=== PATIENT | male | born 1960 | race Caucasian/White ===

== ENCOUNTER 2016-06-10 14:23 | Inpatient (IN) ==
[2016-06-10] MEDS ORDERED: methylPREDNISolone 125 MG/2 ML VIAL IVP ONE (14:32)
[2016-06-10] MEDS ORDERED: Ipratropium/Albuterol Neb 3 ML IH ONE (14:32)
--- NOTE | 2016-06-10 14:35 | Emergency Department Note ---
Disposition Clinical Impression: Non-STEMI (non-ST elevated myocardial infarction), Renal insufficiency Diabetes Qualifiers: Diabetes mellitus type: type 2 Diabetes mellitus complication status: with hyperglycemia Diabetes mellitus intermediate insulin use: unspecified intermediate insulin use status Qualified Code(s): E11.65 - Type 2 diabetes mellitus with hyperglycemia Disposition: Admitted As Inpatient Condition: Fair Referrals: Otto Banks MD [Primary Care Provider] - Forms: ED Satisfaction Letter Time of Disposition: 15:28 SOB HPI - General Chief Complaint: ED Shortness of Breath/Dyspnea Stated Complaint: HAIDER Time Seen by Provider: 06/10/16 14:32 Source: patient Limitations: no limitations Nursing Notes Reviewed: Yes Vital Signs Reviewed: Yes - History of Present Illness 55-year-old who over the last week has had increasing shortness of breath especially with exertion. The patient denies any respiratory history however he does have a 14-wpri-zzus history of smoking. No Chest pain. Pt Subjective Complaint: shortness of breath Onset (ago): Just DOCUMENTATION NURSE Severity: moderate Worsens with: exertion Known history of: other (Denies history but is a heavy smoker) Associated symptoms: Reports: cough, wheezing. Denies: chest pain, fever Cough Description: Involuntary Cough Frequency: Intermittent - Related Data Previous Rx's Medication Instructions Recorded Cyclobenzaprine [Flexeril] 10 mg PO TID #30 tablet 03/15/16 HYDROcodone/Acet 5/325 mg [[place] 1 tab PO Q6H PRN #10 tab 03/15/16 5-325 mg] Allergies Allergy/AdvReac Type Severity Reaction Status Date / Time lisinopril AdvReac Hypotension Verified 06/10/16 14:28 Constitutional: Denies: fever, chills, weakness, weight change Eyes: Denies: eye pain, eye discharge, vision change ENT ED: Denies: ear pain, throat pain, dental pain, hearing loss, epistaxis, congestion, dysphagia Cardiovascular: Denies: chest pain, palpitations, dyspnea on exertion, edema, syncope Respiratory: Reports: dyspnea, wheezes. Denies: cough, hemoptysis, stridor Gastrointestinal: Denies: abdominal pain, nausea, vomiting, diarrhea, constipation, hematemesis, melena, hematochezia Genitourinary: Denies: urgency, dysuria, frequency, hematuria Musculoskeletal: Denies: back pain, neck pain, arthralgia, myalgia Integumentary: Denies: rash, abrasion, lesions Neurological: Denies: headache, weakness, numbness, paresthesias, confusion, abnormal gait, vertigo Psychiatric: Denies: anxiety, depression, suicidal thoughts, homicidal thoughts , auditory hallucinations, visual hallucinations Endocrine: Denies: fatigue Hematological/Lymphatic: Denies: easy bleeding, easy bruising Allergic/Immunologic: Denies: facial swelling, urticaria Past Medical History - Past Medical History Medical history: Reports: diabetes, hyperlipidemia, hypertension Psychiatric history: Reports: no psych history - Social History Smoking Status: Current every day smoker Alcohol use: Reports: occasionally Drug use: Reports: none Physical Exam - General Limitations: no limitations General appearance: alert, in distress - Head Head exam: atraumatic, normocephalic, normal inspection - Eye Eye exam: Present: normal appearance, PERRL, EOMI - ENT ENT exam: normal exam, normal oropharynx, mucous membranes moist - Neck Neck exam: Present: normal inspection, full ROM, trachea midline - Chest Chest inspection: Present: normal inspection, symmetric chest wall rise - Respiratory Respiratory exam: Present: respiratory distress, wheezes, accessory muscle use - Cardiovascular Cardiovascular exam: Present: regular rate, normal rhythm, normal heart sounds - Abdominal Exam Abdominal exam: Present: soft, Non-Tender. Absent: tenderness, distention, guarding, rebound, rigidity - Extremities Exam Extremities exam: Present: normal inspection, full ROM. Absent: tenderness, pedal edema - Expanded Lower Extremity Exam Neurovascular/Tendon exam: Absent: motor deficit, sensory deficit, tendon deficit Gait: not tested/not observed - Back Exam Back exam: Present: normal inspection, full ROM. Absent: tenderness - Neurological Exam Neurological exam: Present: alert, oriented X3 - Psychiatric Psychiatric exam: Present: normal affect, normal mood - Skin Skin exam: Present: warm, dry, intact, normal color Course - Consultations Consultation #1: EKG faxed to the Network Pricing Consultant. Time: 14:53 Consultation #2: Dr. Son reviewed Time: 15:13 Consultation #3: Discussed with jeyson Rankin. Time: 15:28 Additional Consultation(s): [address] Howe reviewed the EKG. 1551 pm I discussed with Sveta kaiser. His lab results including a lactate of 8.2, elevated glucose at 799, elevated troponin of 0.39. [address] Howe is here and evaluated the patient from a cardiology standpoint. Vital Signs Temperature 98.1 F 06/10/16 14:24 Pulse Rate 113 06/10/16 14:24 Respiratory Rate 24 06/10/16 14:24 Blood Pressure 130/88 06/10/16 14:24 O2 Sat by Pulse Oximetry 88 L 06/10/16 14:24 Temperature 98.1 F 06/10/16 14:24 Pulse Rate 97 06/10/16 16:15 Respiratory Rate 18 06/10/16 16:15 Blood Pressure 148/109 06/10/16 16:15 O2 Sat by Pulse Oximetry 93 L 06/10/16 16:15 Oxygen Delivery Oxygen Delivery Nasal Cannula Shortness of Breath/Dyspnea - Lab Data Lab results reviewed: Yes I reviewed the patient's lab results. Result diagrams: 06/10/16 14:50 06/10/16 14:50 Lab Results 06/10/16 06/10/16 06/10/16 Range/Units 14:50 14:50 14:50 WBC 11.3 H (4.3-11.1) K/mcL RBC 5.13 (4.19-5.50) M/mcL Hgb 16.9 (12.9-16.9) g/dL Hct 47.1 (37.5-50.1) % MCV 91.8 (83.0-100.0) fL MCH 32.9 (28.0-33.3) pg MCHC 35.9 H (31.6-35.5) g/dL RDW 13.0 (11.5-14.5) % Plt Count 215 (140-400) K/mcL MPV 9.3 L (9.4-12.4) fL Immature Gran % 1.0 (0-4) % Seg Neutrophils % 83.2 % Lymphocytes % 6.7 % Monocytes % 8.5 % Eosinophils % 0.2 % Basophils % 0.4 % Neutrophils # 9.4 H (1.6-8.9) K/mcL Lymphocytes # 0.8 (0.6-4.6) K/mcL Monocytes # 1.0 (0.0-1.3) K/mcL Eosinophils # 0.0 (0.0-0.6) K/mcL Basophils # 0.0 (0.0-0.2) K/mcL PT (9.4-12.1) Seconds INR APTT (26.0-36.0) Seconds ABG pH (7.32-7.45) pH Units ABG pCO2 (35-45) mmHg ABG pO2 (85-104) mmHg ABG HCO3 (21-27) mEQ/L ABG Total CO2 (20-26) mEq/L ABG O2 Saturation (95-98) % ABG Base Excess (-2.0 to 3.0) mEq/L Blood Gas Modality Inspired O2 % Sodium 131 L (136-145) mEq/L Potassium 3.9 (3.5-4.5) mEq/L Chloride 94 L (98-109) mEq/L Carbon Dioxide 17 L (19-29) mEq/L BUN 7 L (8-26) mg/dL Creatinine 1.37 H (0.72-1.25) mg/dL Est GFR ( Amer) > 60 (> 60) Est GFR (Non-Af Amer) 54 L (> 60) BUN/Creatinine Ratio 5 L (6-26) Glucose 799 H* (70-99) mg/dL Calculated Osmolality 309 H (280-300) Lactic Acid (0.5-2.2) mmol/L Calcium 9.0 (8.6-10.8) mg/dL Troponin I 0.39 H* (0-0.03) ng/mL B-Natriuretic Peptide (0-100) pg/mL 06/10/16 06/10/16 06/10/16 Range/Units 14:50 14:50 14:50 WBC (4.3-11.1) K/mcL RBC (4.19-5.50) M/mcL Hgb (12.9-16.9) g/dL Hct (37.5-50.1) % MCV (83.0-100.0) fL MCH (28.0-33.3) pg MCHC (31.6-35.5) g/dL RDW (11.5-14.5) % Plt Count (140-400) K/mcL MPV (9.4-12.4) fL Immature Gran % (0-4) % Seg Neutrophils % % Lymphocytes % % Monocytes % % Eosinophils % % Basophils % % Neutrophils # (1.6-8.9) K/mcL Lymphocytes # (0.6-4.6) K/mcL Monocytes # (0.0-1.3) K/mcL Eosinophils # (0.0-0.6) K/mcL Basophils # (0.0-0.2) K/mcL PT 10.9 (9.4-12.1) Seconds INR 1.0 APTT 23.8 L (26.0-36.0) Seconds ABG pH 7.43 (7.32-7.45) pH Units ABG pCO2 21 L (35-45) mmHg ABG pO2 106 H (85-104) mmHg ABG HCO3 13.9 L (21-27) mEQ/L ABG Total CO2 14.5 L (20-26) mEq/L ABG O2 Saturation 98 (95-98) % ABG Base Excess -7.8 L (-2.0 to 3.0) mEq/L Blood Gas Modality [place]ASK Inspired O2 60 % Sodium (136-145) mEq/L Potassium (3.5-4.5) mEq/L Chloride (98-109) mEq/L Carbon Dioxide (19-29) mEq/L BUN (8-26) mg/dL Creatinine (0.72-1.25) mg/dL Est GFR ( Amer) (> 60) Est GFR (Non-Af Amer) (> 60) BUN/Creatinine Ratio (6-26) Glucose (70-99) mg/dL Calculated Osmolality (280-300) Lactic Acid (0.5-2.2) mmol/L Calcium (8.6-10.8) mg/dL Troponin I (0-0.03) ng/mL B-Natriuretic Peptide 382 H (0-100) pg/mL 06/10/16 Range/Units 15:00 WBC (4.3-11.1) K/mcL RBC (4.19-5.50) M/mcL Hgb (12.9-16.9) g/dL Hct (37.5-50.1) % MCV (83.0-100.0) fL MCH (28.0-33.3) pg MCHC (31.6-35.5) g/dL RDW (11.5-14.5) % Plt Count (140-400) K/mcL MPV (9.4-12.4) fL Immature Gran % (0-4) % Seg Neutrophils % % Lymphocytes % % Monocytes % % Eosinophils % % Basophils % % Neutrophils # (1.6-8.9) K/mcL Lymphocytes # (0.6-4.6) K/mcL Monocytes # (0.0-1.3) K/mcL Eosinophils # (0.0-0.6) K/mcL Basophils # (0.0-0.2) K/mcL PT (9.4-12.1) Seconds INR APTT (26.0-36.0) Seconds ABG pH (7.32-7.45) pH Units ABG pCO2 (35-45) mmHg ABG pO2 (85-104) mmHg ABG HCO3 (21-27) mEQ/L ABG Total CO2 (20-26) mEq/L ABG O2 Saturation (95-98) % ABG Base Excess (-2.0 to 3.0) mEq/L Blood Gas Modality Inspired O2 % Sodium (136-145) mEq/L Potassium (3.5-4.5) mEq/L Chloride (98-109) mEq/L Carbon Dioxide (19-29) mEq/L BUN (8-26) mg/dL Creatinine (0.72-1.25) mg/dL Est GFR ( Amer) (> 60) Est GFR (Non-Af Amer) (> 60) BUN/Creatinine Ratio (6-26) Glucose (70-99) mg/dL Calculated Osmolality (280-300) Lactic Acid 8.2 H* (0.5-2.2) mmol/L Calcium (8.6-10.8) mg/dL Troponin I (0-0.03) ng/mL B-Natriuretic Peptide (0-100) pg/mL - Radiology Data Radiology results reviewed: Yes I reviewed the patient's radiology results. - EKG Data EKG attestation: Yes I reviewed and interpreted this EKG. EKG shows normal: Reports: sinus rhythm Rate: Reports: normal Rhythm: Reports: NSR T wave inversions noted in: Reports: v1, v2, v3 Interpretation: Reports: other (New T-wave inversion in inferior leads.) Critical Care Time Critical Care Time: Yes Total Critical Care Time: 45 Attestation: The high probability of a clinically significant, sudden or life threatening deterioration of the [cardiovascular] system(s) required my full and direct attention, intervention and personal management. The aggregate critical care time was [45] minutes. This time is in addition to time spent performing reported procedures but includes the following: [x] Data Review and interpretation [x] Patient assessment and monitoring of vital signs [x] Documentation [x] Medication orders and management
[2016-06-10 14:56] LABS: ABG Base Excess -7.8 mEq/L (-2.0 to 3.0); ABG HCO3 13.9 mEQ/L (21-27); ABG Oxygen Saturation 98 % (95-98); ABG PCO2 21 mmHg (35-45); ABG PH 7.43 pH Units (7.32-7.45); ABG PO2 106 mmHg (85-104); ABG TCO2 14.5 mEq/L (20-26)
[2016-06-10 14:57] LABS: Blood Gas FiO2 60 %
[2016-06-10 15:05] LABS: Basophils % 0.4 %; Eosinophils % 0.2 %; Hematocrit 47.1 % (37.5-50.1); Hemoglobin 16.9 g/dL (12.9-16.9); Lymphocytes # 0.8 K/mcL (0.6-4.6); Lymphocytes % 6.7 %; Mean Corpuscular HGB Conc 35.9 g/dL (31.6-35.5); Mean Corpuscular Hemoglobin 32.9 pg (28.0-33.3); Mean Corpuscular Volume 91.8 fL (83.0-100.0); Mean Platelet Volume 9.3 fL (9.4-12.4); Monocytes % 8.5 %; Neutrophils # 9.4 K/mcL (1.6-8.9); Platelet Count 215 K/mcL (140-400); Red Blood Count 5.13 M/mcL (4.19-5.50); Segmented Neutrophils % 83.2 %
[2016-06-10 15:12] LABS: BUN/Creatinine Ratio 5 (6-26); Blood Urea Nitrogen 7 mg/dL (8-26); Carbon Dioxide 17 mEq/L (19-29); Chloride 94 mEq/L (98-109); Osmolality,Calculated 309 (280-300); Potassium 3.9 mEq/L (3.5-4.5); Sodium 131 mEq/L (136-145); eGFR For African Americans > 60 (> 60); eGFR For Non-African Americans 54 (> 60)
[2016-06-10 15:14] LABS: Glucose 799 mg/dL (70-99)
[2016-06-10] MEDS ORDERED: Insulin Regular, Human 100 UNIT/ML IV ONE (15:19)
[2016-06-10] MEDS ORDERED: *HR* Heparin 5,000 UNIT/ML VIAL IVP PRN ×3 (15:20→20:42)
[2016-06-10] MEDS ORDERED: 0.9 % Sodium Chloride 1,000 ML IVC ONE (15:20)
[2016-06-10] MEDS ORDERED: *HR* Heparin 5,000 UNIT/ML VIAL IVP ONE (15:20)
[2016-06-10] MEDS ORDERED: Heparin 25,000 UNIT/500 ML D5W 25,000 UNIT/500 ML MLS IVC SCH (15:30)
[2016-06-10] MEDS ORDERED: *HR* Dextrose 50 % in Water (Syg) 50 ML SYRINGE IVP PRN ×2 (15:31→18:17)
[2016-06-10 15:35] LABS: Prothrombin Time 10.9 Seconds (9.4-12.1)
[2016-06-10 15:38] LABS: Activated Partial Thrombo Time 23.8 Seconds (26.0-36.0)
[2016-06-10] MEDS ORDERED: Piperacillin/Tazobactam 3.375 GM in D5% in Water (Mini-Bag+) 100 ML IVPB ONE (15:41)
[2016-06-10] MEDS ORDERED: Insulin Human Regular 100 UNIT in 0.9 % Sodium Chloride 100 ML IVC SCH ×2 (15:45→18:30)
--- NOTE | 2016-06-10 16:16 | Cardiology Consult Note ---
Date of Encounter: 06/10/16 Time of Encounter: 16:12 Assessment and Plan (1) Non-STEMI (non-ST elevated myocardial infarction) Current Visit: Yes Status: Acute 55 year old with untreated DM/HTN/HLD and ongoing tobacco use. Quit all medications and has not seen PCP. Presents with worsening dyspnea and no chest pain. Mild troponin elevation and abnormal ECG. Recommend medical therapy for now, including aspirin/heparin gtt/statin/bb therapy. Hold ACEi given ILA. Check echocardiogram. Possible coronary evaluation once medical issues stabilized. Elevated blood sugar with increased anion gap/metabolic acidosis noted. Your IM management regarding this. Discussion w patient/family: The assessment and plan as outlined above was discussed with the patient and/or family members who expressed understanding and agreement. All questions were answered. Thank you for involving us in the care of your patient. Please call with any questions. History of Present Illness Consult date: 06/10/16 Requesting physician: Edwin Dennis Consult reason: Abnormal ECG, elevated troponin Chief complaint: Dyspnea History of present illness: Mr. Perez is a 55 year old male with a 3-4 year history of DM, ongoing tobacco use, HLD, and HTN. Quit taking Metformin a while ago due to diarrhea; never followed up with pcp. Presents with increasing dyspnea with ordinary activity over the last 3-4 days. No chest pain reported. Reports increased frequency of urination. No prior known heart disease - no prior cardiac testing. Dr. Dennis reviewed ECGs with interventional cardiology; medical therapy recommended. Past Med Surg Social Fam HX - Past Medical History Medical history: diabetes, hyperlipidemia, hypertension Psychiatric history: no psych history - Social History Smoking Status: Current every day smoker Alcohol use: occasionally Drug use: none Medications and Allergies Cyclobenzaprine [Flexeril] 10 mg PO TID #30 tablet 03/15/16 [Rx] HYDROcodone/Acet 5/325 mg [[place] 5-325 mg] 1 tab PO Q6H PRN #10 tab 03/15/16 [Rx ] Allergies lisinopril Adverse Reaction (Verified 06/10/16 14:28) Hypotension All Systems Review: A 10-system review of systems was performed and is negative for pertinent findings except as documented above in the HPI. - Cardiovascular Cardiovascular: as per HPI, dyspnea at rest, dyspnea on exertion - Genitourinary Genitourinary: other (polyuria) Physical Examination Vital Signs, Last 4 Hours Temp Pulse Resp BP Pulse Ox 06/10/16 14:55 104 18 139/109 96 06/10/16 14:53 20 96 06/10/16 14:24 98.1 F 113 24 130/88 88 L General: Conversant, No Apparent Distress HEENT: Atraumatic, Normocephaly, Mucus Membranes Moist Neck: No JVD, Normal carotid pulses Cardiac: Reg Rate and Rhythm, Normal S1 and S2, No Murmur Lungs: Normal Breath Sounds, No Wheeze, Rales, Rhonchi Neuro: Alert and responsive, No focal deficits noted Abdomen: Soft, Non-Tender Skin: No rashes noted on visualized skin Musculoskeletal: No Chest Wall Tenderness Extremities: No Clubbing, No Cyanosis, No Edema Results 06/10/16 14:50 06/10/16 14:50 Lab Results 06/10/16 06/10/16 06/10/16 14:50 14:50 14:50 WBC 11.3 H Hgb 16.9 Hct 47.1 Plt Count 215 INR APTT Sodium 131 L Potassium 3.9 Chloride 94 L Carbon Dioxide 17 L BUN 7 L Creatinine 1.37 H Glucose 799 H* Calcium 9.0 Troponin I 0.39 H* B-Natriuretic Peptide 06/10/16 06/10/16 14:50 14:50 WBC Hgb Hct Plt Count INR 1.0 APTT 23.8 L Sodium Potassium Chloride Carbon Dioxide BUN Creatinine Glucose Calcium Troponin I B-Natriuretic Peptide 382 H - Imaging and Cardiology Chest Xray: report reviewed - EKG Interpretation EKG results cardiology: personally reviewed (Sinus rhythm. ST-T changes noted in V2-3. No reciprocal changes.) Consult Discharge Plan - Plan Referrals: Otto Banks MD [Primary Care Provider] -
[2016-06-10] MEDS ORDERED: Metoprolol XL (24 HR) Succ 25 MG TAB.ER.24H PO SCH (16:30)
[2016-06-10 16:42] LABS: Chol/HDL Ratio 5.3 (0-4.9); Cholesterol 294 mg/dL (< 200); HDL Cholesterol 56 mg/dL (40-59); LDL Cholesterol,Calculated 190 mg/dL (0-99); Triglycerides 242 mg/dL (< 150)
[2016-06-10 17:10] LABS: Bilirubin,Urine Negative (Negative); Blood,Urine Negative (Negative); Clarity,Urine Clear (Clear); Color,Urine Yellow (Yellow); Glucose,Urine (UA) >=1000 mg/dL (Normal); Ketones,Urine Negative (Negative); Leukocyte Esterase,Urine Negative (Negative); Nitrite,Urine Negative (Negative); Protein,Urine Negative (Neg-Trace); Urobilinogen,Urine Normal (Normal)
--- NOTE | 2016-06-10 17:12 | Internal Med History&Physical ---
Date of Encounter: 06/10/16 Time of Encounter: 17:08 Assessment and Plan (1) Diabetic ketoacidosis Current visit: Yes Status: Acute I suspect the patient has type 1 diabetes with DKA. Anion gap is 20. PH is within normal limits. We will check beta hydroxybutyrate levels. Start DKA protocol with insulin drip and electrolyte repletion. We will admit the patient to stepdown. He will require intensive one-to-one nursing and every hour glucose level. The patient is currently unstable and there is high probability of emergent and significant clinical decompensation with potential impairment of organ function including cardiovascular system and respiratory system secondary to profound metabolic abnormalities and acute myocardial infarction. I have performed 35 minutes of critical care time which involved decision making of high complexity to assess, manipulate, and support vital organ system, in order to prevent further life threatening deterioration of the patient's condition. The time involved in the performance of any procedures was not counted toward critical care time and will be billed separately. Critical care time was spent obtaining history and examining the patient, reviewing EKGs, telemetry tracing, imaging studies and laboratory data, discussing the case with the emergency department physicians, ordering medications and reevaluating for clinical response. Qualifiers: Diabetes mellitus type: type 1 Diabetes mellitus complication detail: without coma Qualified Code(s): E10.10 - Type 1 diabetes mellitus with ketoacidosis without coma (2) Tobacco abuse Current visit: Yes Status: Acute I have counseled patient on smoking cessation. (3) Lactic acidosis Current visit: Yes Status: Acute Likely secondary to DKA. No evidence of infection. We will treat this with with IV fluids and recheck lactic acid levels after IV hydration. (4) DVT prophylaxis Current visit: Yes Status: Acute Subcutaneous Lovenox (5) Diabetes Current visit: Yes Status: Acute We will treat this with insulin drip per DKA protocol I suspect the patient may have type 1 diabetes pill. I will order C-peptide testing. I have discussed with him the need to initiate insulin UPON DISCHARGE. Qualifiers: Diabetes mellitus type: type 2 Diabetes mellitus complication status: with hyperglycemia Diabetes mellitus manager terminal insulin use: without manager terminal use Qualified Code(s): E11.65 - Type 2 diabetes mellitus with hyperglycemia (6) Non-STEMI (non-ST elevated myocardial infarction) Current visit: Yes Status: Acute He was evaluated by cardiology. They recommended no acute intervention. They recommended heparin drip. I will continue with the heparin drip per ACS protocol. I have repeated an EKG which now shows some inverted T waves and inferior leads along with the previously shown T-wave inversions in V1 to V3. There is no clear ST elevation and patient has no chest pain right now and so there is no indication for emergent cardiac catheterization. I will treat patient with aspirin and intravenous beta karen and sublingual nitroglycerin as needed. Monitor and control blood pressure. Supplemental oxygen by nasal cannula to maintain saturation above 92%. (7) Renal insufficiency Current visit: Yes Status: Acute IV fluid hydration prior to coronary angiogram. Avoid nephrotoxins. Monitor GFR. Replete electrolytes as needed. Internal Medicine - H&P: HPI Chief complaint: Shortness of breath Admitted From: Emergency Dept Plans for Post Hospital Care: Home History of present illness: Mr. Perez is a 55 year old male with past medical history significant for diabetes and hypertension and presented to the hospital for evaluation of shortness of breath. He he has been severely short of breath for the last 4 days which he describes as breathing fast and feeling breathless, brought on by minimal exertion such as getting dressed and walking a few feet. Symptoms were not associated with chest pain cough fever nausea vomiting or diarrhea. He states that he has been getting diarrhea in the past secondary to metformin and therefore he stopped taking this. He has not been taking any other medications for diabetes. In the emergency department was noted that he had an abnormal EKG. Troponin was elevated. The patient remained chest pain-free. His glucose was greater than 700. He was given insulin and started on heparin and referred for admission. Review of systems positive for urinary frequency and urgency that has been going on for years. Additional pertinent positives as above, otherwise a 10 point review of systems was negative Family history was negative for premature coronary artery disease in both parents Social history: Patient smokes 10 cigarettes a day, denies alcohol and drug use. Past Med Surg Social Fam HX - Past Medical History Medical history: diabetes, hyperlipidemia, hypertension Psychiatric history: no psych history - Social History Smoking Status: Current every day smoker Alcohol use: occasionally Drug use: none Internal Medicine - H&P: Meds Amlodipine [Norvasc] 5 mg PO DAILY 06/10/16 [History] Hydrochlorothiazide 25 mg PO DAILY 06/10/16 [History] Metoprolol Tartrate [Lopressor] 50 mg PO BID 06/10/16 [History] Allergies atorvastatin [From Lipitor] Adverse Reaction (Verified 06/10/16 17:05) Muscle Pain lisinopril Adverse Reaction (Verified 06/10/16 14:28) Hypotension metformin Adverse Reaction (Verified 06/10/16 17:05) Diarrhea All Systems PM: A 10-system review of systems was performed and is negative for pertinent findings except as documented above in the HPI. - Constitutional Vitals: Temp Pulse Resp BP Pulse Ox 98.1 F 97 18 148/109 93 L 06/10/16 14:24 06/10/16 16:15 06/10/16 16:15 06/10/16 16:15 06/10/16 16:15 General appearance: Present: A&O X 3 - Eye Eye exam: Present: PERRL, conjuntiva pink, sclera anicteric Pupils: Present: PERRL - Respiratory Respiratory exam: Present: CTAB. Absent: accessory muscle use, rales, rhonchi, wheezes - Cardiovascular Cardiovascular exam: Present: +S1, +S2, tachycardia. Absent: diastolic murmur, gallop, rubs, systolic murmur - GI/Abdominal GI/Abdominal exam: Present: normal bowel sounds, soft, no peritoneal signs. Absent: distended, tenderness - Extremities Exam Extremities exam: Present: warm, radial pulses palpable and symetrical. Absent : calf tenderness, cyanotic, pedal edema - Neurological Exam Neurological exam: Present: CN II-XII intact, oriented X3, no focal deficits. Absent: pronater drift, facial droop, speech deficit - Skin Skin exam: Present: dry, intact Internal Med - H&P Results - Labs CBC & Chem 7: 06/10/16 14:50 06/10/16 14:50 Labs: Short CBC 06/10/16 Range/Units 14:50 WBC 11.3 H (4.3-11.1) K/mcL Hgb 16.9 (12.9-16.9) g/dL Hct 47.1 (37.5-50.1) % Plt Count 215 (140-400) K/mcL Neutrophils # 9.4 H (1.6-8.9) K/mcL BMP 06/10/16 14:50 Sodium 131 L Potassium 3.9 Chloride 94 L Carbon Dioxide 17 L BUN 7 L Creatinine 1.37 H Glucose 799 H* Calcium 9.0 Cardiac Enzymes 06/10/16 Range/Units 14:50 Troponin I 0.39 H* (0-0.03) ng/mL - ABG Interpretation ABG results: 06/10/16 14:50 ABG pH 7.43 ABG pCO2 21 L ABG pO2 106 H ABG HCO3 13.9 L ABG Total CO2 14.5 L ABG O2 Saturation 98 ABG Base Excess -7.8 L - EKG Data -: EKG Interpreted by Myself (102bpm. Q waves in leads 23 and aVF and T-wave inversion in leads V1 to V3) Rate: tachycardia - Impressions ITS Impressions Chest X-Ray 06/10/16 14:32 IMPRESSION: Chronic changes at the left lung base, though no acute cardiopulmonary process is identified. D/ / Tre Kay MD / Tre Kay MD Interpreting Provider: Tre Kay MD
[2016-06-10] MEDS ORDERED: Naloxone 0.4 MG/ML INJ IVP PRN (18:02)
[2016-06-10] MEDS ORDERED: Acetaminophen 325 MG TABLET PO PRN (18:02)
[2016-06-10] MEDS ORDERED: Ondansetron 4 MG/2 ML VIAL IVP PRN (18:02)
[2016-06-10] MEDS ORDERED: D5% in 0.45% NACL 1,000 ML IVC PRN (18:17)
[2016-06-10] MEDS ORDERED: D5% in 0.45% NACL w KCl 20 MEQ/1,000 ML MLS IVC PRN (18:17)
[2016-06-10] MEDS ORDERED: 0.9 % Sodium Chloride 250 ML ONE (18:38)
[2016-06-10] MEDS: Aspirin Enteric Coated 81 MG Tablet PO SCH (20:03)
[2016-06-10] MEDS: 0.9 % Sodium Chloride w KCl 20 MEQ/1,000 ML MLS IVC SCH ×2 (20:05→23:02)
[2016-06-10 21:13] LABS: VBG HCO3 23.4 mEq/L (21-27); VBG PH 7.42 pH Units (7.32-7.42)
[2016-06-10 21:14] LABS: Hematocrit 44.3 % (37.5-50.1); Hemoglobin 16.2 g/dL (12.9-16.9); Mean Corpuscular HGB Conc 36.6 g/dL (31.6-35.5); Mean Corpuscular Hemoglobin 32.8 pg (28.0-33.3); Mean Corpuscular Volume 89.7 fL (83.0-100.0); Mean Platelet Volume 9.1 fL (9.4-12.4); Platelet Count 196 K/mcL (140-400); Red Blood Count 4.94 M/mcL (4.19-5.50); Red Cell Distribution Width 13.1 % (11.5-14.5)
[2016-06-10 21:18] LABS: Prothrombin Time 11.2 Seconds (9.4-12.1)
[2016-06-10 21:20] LABS: Activated Partial Thrombo Time 33.5 Seconds (26.0-36.0)
[2016-06-10 21:25] LABS: BUN/Creatinine Ratio 9 (6-26); Blood Urea Nitrogen 7 mg/dL (8-26); Calcium 8.5 mg/dL (8.6-10.8); Carbon Dioxide 21 mEq/L (19-29); Chloride 107 mEq/L (98-109); Glucose 219 mg/dL (70-99); Osmolality,Calculated 295 (280-300); Potassium 3.7 mEq/L (3.5-4.5); eGFR For African Americans > 60 (> 60); eGFR For Non-African Americans > 60 (> 60)
[2016-06-10 21:28] LABS: Sodium 140 mEq/L (136-145)
[2016-06-10] MEDS: Heparin 25,000 UNIT/500 ML D5W 25,000 UNIT/500 ML MLS IVC SCH (23:04)
[2016-06-10] MEDS: *HR* Heparin 5,000 UNIT/ML VIAL IVP PRN (23:11)
[2016-06-10] MEDS ORDERED: D5% in Water 1,000 ML IV PRN (23:21)
[2016-06-10] MEDS ORDERED: Dextrose Gel 15 GM PO PRN (23:21)
[2016-06-10] MEDS ORDERED: Insulin DETEMIR 100 UNIT/ML X5UNITS SQ SCH (23:30)
[2016-06-11 01:42] LABS: VBG HCO3 21.8 mEq/L (21-27); VBG PH 7.5 pH Units (7.32-7.42)
[2016-06-11 01:55] LABS: Basophils % 0.1 %; Hematocrit 43.1 % (37.5-50.1); Hemoglobin 15.4 g/dL (12.9-16.9); Hemoglobin A1C 11.6 %; Immature Granulocytes % 0.5 % (0-4); Lymphocytes # 1.1 K/mcL (0.6-4.6); Lymphocytes % 7.5 %; Mean Corpuscular HGB Conc 35.7 g/dL (31.6-35.5); Mean Corpuscular Volume 89.4 fL (83.0-100.0); Mean Platelet Volume 9.1 fL (9.4-12.4); Monocytes # 1.1 K/mcL (0.0-1.3); Monocytes % 7.5 %; Neutrophils # 12.5 K/mcL (1.6-8.9); Platelet Count 208 K/mcL (140-400); Red Blood Count 4.82 M/mcL (4.19-5.50); Red Cell Distribution Width 13.1 % (11.5-14.5); Segmented Neutrophils % 84.4 %
[2016-06-11 01:59] LABS: BUN/Creatinine Ratio 10 (6-26); Blood Urea Nitrogen 7 mg/dL (8-26); Calcium 8.4 mg/dL (8.6-10.8); Carbon Dioxide 21 mEq/L (19-29); Chloride 108 mEq/L (98-109); Chol/HDL Ratio 4.7 (0-4.9); Cholesterol 253 mg/dL (< 200); Glucose 137 mg/dL (70-99); HDL Cholesterol 54 mg/dL (40-59); LDL Cholesterol,Calculated 181 mg/dL (0-99); Magnesium 1.5 mg/dL (1.6-2.6); Osmolality,Calculated 288 (280-300); Potassium 3.2 mEq/L (3.5-4.5); Sodium 139 mEq/L (136-145); Triglycerides 89 mg/dL (< 150); eGFR For African Americans > 60 (> 60); eGFR For Non-African Americans > 60 (> 60)
[2016-06-11 02:00] LABS: Alanine Aminotransferase 25 Units/L (0-55); Albumin 2.8 g/dL (3.5-5.0); Albumin/Globulin Ratio 0.8 (1.1-2.2); Alkaline Phosphatase 76 Units/L (38-126); Aspartate Amino Transferase 21 Units/L (5-34); BUN/Creatinine Ratio 11 (6-26); Bilirubin,Total 0.7 mg/dL (0.2-1.2); Blood Urea Nitrogen 7 mg/dL (8-26); Calcium 8.3 mg/dL (8.6-10.8); Carbon Dioxide 21 mEq/L (19-29); Chloride 109 mEq/L (98-109); Globulin 3.6 g/dL (2.4-3.5); Glucose 135 mg/dL (70-99); Osmolality,Calculated 290 (280-300); Potassium 3.2 mEq/L (3.5-4.5); Sodium 140 mEq/L (136-145); Total Protein 6.4 g/dL (6.0-8.3); eGFR For African Americans > 60 (> 60); eGFR For Non-African Americans > 60 (> 60)
--- NOTE | 2016-06-11 03:24 | Electrocardiograph Report ---
[facility] Test Date: 2016-06-10 Pat Name: Rogers Perez Department: 104 Room: 2N03 Gender: M Genetic Counselor: : 1960 Requested By: Edwin Dennis Order Number: [id number] Reading MD: Mahad Lopez MD Measurements Intervals [place] Rate: 102 P: 63 AR: 139 QRS: 75 QRSD: 115 T: 46 QT: 354 QTc: 412 Interpretive Statements SINUS TACHYCARDIA Electronically Signed On 06-11-2016 3:22:33 EST by Mahad Lopez MD
[2016-06-11] MEDS: Famotidine 20 MG/2 ML VIAL IVP SCH ×2 (06:22→16:31)
[2016-06-11] MEDS ORDERED: *HR* Metoprolol 5 MG/5 ML VIAL IVP ONE ×2 (07:30→07:35)
[2016-06-11] MEDS: *HR* Heparin 5,000 UNIT/ML VIAL IVP PRN ×2 (07:30→19:53)
[2016-06-11] MEDS: Insulin LISPRO 300 UNITS/3 ML VIAL SQ SCH ×4 (08:01→19:55)
[2016-06-11] MEDS: *HR* Metoprolol 5 MG/5 ML VIAL IVP SCH ×4 (08:39→23:19)
[2016-06-11] MEDS ORDERED: D5% in 0.45% NACL w KCl 20 MEQ/1,000 ML MLS IVC PRN (08:49)
[2016-06-11] MEDS: Aspirin Enteric Coated 81 MG Tablet PO SCH ×2 (09:02→09:55)
[2016-06-11] MEDS: amLODIPine 5 MG TABLET PO SCH ×2 (09:03→09:56)
--- NOTE | 2016-06-11 09:05 | Internal Med Progress Note ---
Date of Encounter: 06/11/16 Time of Encounter: 09:03 - Assessment and plan (1) Pulmonary embolism Current Visit: Yes Status: Acute Assessment and plan: CTA chest: Bilateral PE including Saddle Embolus. Small bilateral pulmonary nodules. Lytic lesion in the sternum-Concern for Malignancy Anticoagulated with Heparin drip Heme/Onc evaluation with Dr. Sharma requested Dyspnea likely secondary to PE continue O2 supplementation monitor O2 sat, patient has extensive smoking history, may have underlying undiagnosed COPD. Qualifiers: Pulmonary embolism type: saddle Chronicity: unspecified Acute cor pulmonale presence: without acute cor pulmonale Qualified Code(s): I26.92 - Saddle embolus of pulmonary artery without acute cor pulmonale (2) Diabetic ketoacidosis Current Visit: Yes Status: Acute Assessment and plan: secondary to noncompliance AG closed. Patient received Levemir overnight BG within acceptable range Initiated ADA diet Will continue Levemir, since patient is insulin naive, will dose at 0.2mg/kg Continue Insulin sliding scale algorithm as needed monitor fingerstick and blood glucose HbA1C:11.6 staff development educator counseling requested. Qualifiers: Diabetes mellitus type: type 1 Diabetes mellitus complication detail: without coma Qualified Code(s): E10.10 - Type 1 diabetes mellitus with ketoacidosis without coma (3) Lactic acidosis Current Visit: Yes Status: Acute Assessment and plan: Likely secondary to DKA Improving will obtain repeat Lactate this morning (4) Non-STEMI (non-ST elevated myocardial infarction) Current Visit: Yes Status: Acute Assessment and plan: Elevated TNI with exertional dyspnea and EKG changes (inverted Twaves) TNI trending down, no chest pain reported at this time Given the severity of PE, will hold off on [facility] at this time and continue with medical management continue Heparin drip follow up 2D echo continue asa,bb, statin cardiology on board-consultation appreciated. (5) Hypertension Current Visit: Yes Status: Acute Assessment and plan: Uncontrolled HTN secondary to noncompliance Will restart home BP meds (Metoprolol, Amlodipine, and Hctz) Renal function improved and at baseline. Qualifiers: Hypertension type: essential hypertension Qualified Code(s): I10 - Essential (primary) hypertension (6) Hypokalemia Current Visit: Yes Status: Acute Assessment and plan: K supplemented continue to monitor electrolytes and replace as needed (7) DVT prophylaxis Current Visit: Yes Status: Acute Assessment and plan: anticoagulated with heparin drip (8) Tobacco abuse Current Visit: Yes Status: Acute Assessment and plan: Smoking cessation counseling provided patient reports of trying to cut down Refused nicotine replacement therapy - Time Spent With Patient Greater than 35 minutes - Subjective Interval history: Patient is a 55-year-old male admitted for HHS secondary to noncompliance and shortness of breath. In the ER he was found to have elevated troponins with concern for an NSTEMI and cardiology was consulted. Overnight patient underwent CTA to rule out PE and was found to have bilateral emboli with saddle embolus. CTA chest also showed lytic lesions to the sternum concerning for malignancy. Patient seen and examined at bedside. Resting comfortably in bed and states he is feeling better at this time. Denies any shortness of breath, chest pain, palpitations, abdominal pain, nausea, or vomiting at this time. States he has not taken his metformin in over 6 months and his blood sugars have been controlled at home. Reports of having family history of PEs and bilateral DVTs , along with malignancy. - Constitutional Vitals: Temp Pulse Resp BP Pulse Ox 98.1 F 85 18 157/113 97 06/11/16 08:15 06/11/16 08:15 06/11/16 08:15 06/11/16 08:15 06/11/16 08:15 General appearance: Present: cooperative, A&O X 3, pleasant, no acute distress, answers questions appropriately - Head Head exam: Present: atraumatic, normocephalic - Eye Eye exam: Present: normal appearance, conjuntiva pink, sclera anicteric - Respiratory Respiratory exam: Present: CTAB. Absent: accessory muscle use, rales, rhonchi, wheezes - Cardiovascular Cardiovascular exam: Present: RRR, +S1, +S2. Absent: diastolic murmur, gallop, rubs, systolic murmur - GI/Abdominal GI/Abdominal exam: Present: normal bowel sounds, soft, no peritoneal signs. Absent: distended, tenderness - Extremities Exam Extremities exam: Present: warm, radial pulses palpable and symetrical. Absent : calf tenderness, cyanotic, pedal edema - Neurological Exam Neurological exam: Present: alert, oriented X3, no focal deficits - Psychiatric Psychiatric exam: Present: normal affect, normal mood Internal Medicine: Result - Labs CBC & Chem 7: 06/11/16 01:21 06/11/16 01:21 Labs: Short CBC 06/10/16 06/11/16 Range/Units 21:05 01:21 WBC 13.9 H 14.8 H (4.3-11.1) K/mcL Hgb 16.2 15.4 (12.9-16.9) g/dL Hct 44.3 43.1 (37.5-50.1) % Plt Count 196 208 (140-400) K/mcL Neutrophils # 12.5 H (1.6-8.9) K/mcL BMP 06/10/16 06/11/16 06/11/16 21:05 01:21 01:21 Sodium 140 D 139 140 Potassium 3.7 3.2 L 3.2 L Chloride 107 108 109 Carbon Dioxide 21 21 21 BUN 7 L 7 L 7 L Creatinine 0.76 0.68 L 0.66 L Glucose 219 H 137 H 135 H Calcium 8.5 L 8.4 L 8.3 L Cardiac Enzymes 06/11/16 06/11/16 Range/Units 01:21 06:32 Troponin I 0.17 H* 0.13 H* (0-0.03) ng/mL Liver Function 06/11/16 Range/Units 01:21 Total Bilirubin 0.7 (0.2-1.2) mg/dL AST 21 (5-34) Units/L ALT 25 (0-55) Units/L Alkaline Phosphatase 76 (38-126) Units/L Albumin 2.8 L (3.5-5.0) g/dL - ABG Interpretation ABG results: ABG ABG pH 7.43 pH Units (7.32-7.45) 06/10/16 14:50 ABG pCO2 21 mmHg (35-45) L 06/10/16 14:50 ABG pO2 106 mmHg (85-104) H 06/10/16 14:50 ABG O2 Saturation 98 % (95-98) 06/10/16 14:50 PT/INR, D-dimer PT 11.2 Seconds (9.4-12.1) 06/10/16 21:05 - Impressions Impressions Pulmonary Perfusion Imaging 06/10/16 20:40 IMPRESSION: This is a high probability scan pattern for pulmonary embolus. Critical results were called by Dr. Qamar Vazquez MD to Hakeem Montalvo on 06/10/2016 at 22:55. D/ / Qamar Vazquez MD / Qamar Vazquez MD Interpreting Provider: Qamar Vazquez MD Chest CTA 06/11/16 00:20 IMPRESSION: 1. Multiple bilateral pulmonary emboli including saddle embolus. 2. Coronary artery disease. 3. Small bilateral pulmonary nodules. See recommendations below. 4. The lytic lesion in the sternum is nonspecific though metastatic disease must be considered. The sclerotic foci in the left 3rd and 4th ribs likely represent nondisplaced healing fractures given the presence of recent healing fractures in the right 4th and 5th ribs. Critical results were called by Dr. Qamar Vazquez MD to Hakeem Brina Montalvo on 06/11/2016 at 01:10. RECOMMENDATIONS: Fleischner Society guidelines for follow-up and management of incidentally detected pulmonary nodules in this patient: In a low-risk patient, no routine follow-up. In a high-risk patient, optional CT at 12 months. Radiology 2017 http://pubs.rsna.org/doi/full/10.1148/radiol.6085137835 D/ / Qamar Vazquez MD / Qamar Vazquez MD Interpreting Provider: Qamar Vazquez MD Consult Discharge Plan - Plan Referrals: Otto Banks MD [Primary Care Provider] - 06/23/16 11:30 am
[2016-06-11] MEDS ORDERED: Ipratropium/Albuterol Neb 3 ML IH PRN (09:26)
[2016-06-11 10:19] LABS: Basophils % 0.2 %; Hematocrit 43.7 % (37.5-50.1); Hemoglobin 15.5 g/dL (12.9-16.9); Immature Granulocytes % 0.5 % (0-4); Lymphocytes # 1.4 K/mcL (0.6-4.6); Lymphocytes % 7.6 %; Mean Corpuscular HGB Conc 35.5 g/dL (31.6-35.5); Mean Corpuscular Hemoglobin 32.7 pg (28.0-33.3); Mean Corpuscular Volume 92.2 fL (83.0-100.0); Mean Platelet Volume 9.8 fL (9.4-12.4); Monocytes # 1.1 K/mcL (0.0-1.3); Neutrophils # 16.1 K/mcL (1.6-8.9); Platelet Count 184 K/mcL (140-400); Red Blood Count 4.74 M/mcL (4.19-5.50); Red Cell Distribution Width 13.3 % (11.5-14.5); Segmented Neutrophils % 85.7 %
[2016-06-11] MEDS: hydroCHLOROthiazide 25 MG TABLET PO SCH (10:59)
--- NOTE | 2016-06-11 11:02 | Cardiology Progress Note ---
Date of Encounter: 06/11/16 Time of Encounter: 10:58 Assessment and Plan (1) Troponin level elevated Current Visit: Yes Status: Acute Troponin elevation in setting of significant PEs. No chest pain, only dyspnea. Nonpsecific ST-T changes. If no significant findings on echocardiogram, then no further inpatient cardiac testing appears necessary at this time. Call with questions. (2) Pulmonary embolism Current Visit: Yes Status: Acute Acute pulmonary emboli - bilateral and saddle PE. Noted lytic lesion of sternum - ? malignancy is cause for hypercoagulable condition. Agree with venous Doppler. If positive, consider Boyle filter. Otherwise, consider pulmonary/critical care evaluation for this submassive PE. Agree with heparin drip. Transition to Coumadin when appropriate. No further cardiac recommendations. Qualifiers: Pulmonary embolism type: saddle Chronicity: unspecified Acute cor pulmonale presence: without acute cor pulmonale Qualified Code(s): I26.92 - Saddle embolus of pulmonary artery without acute cor pulmonale (3) Hypertension Current Visit: Yes Status: Acute BP appears poorly controlled. Continue BB and HCTZ. Allergic to ACEi. Start Norvasc 5 mg daily. Titrate as needed. Qualifiers: Hypertension type: essential hypertension Qualified Code(s): I10 - Essential (primary) hypertension Discussion w patient/family: The assessment and plan as outlined above was discussed with the patient and/or family members who expressed understanding and agreement. All questions were answered. Thank you for involving us in the care of your patient. Please call with any questions. Subjective Principal diagnosis: PE Interval history: Events overnight noted. CT demonstrated lytic lesion of sternum and bilateral PEs/saddle PE. Echocardiogram completed, results pending. Troponin decreasing. BP poorly controlled. Objective Vital Signs, Last 4 Hours Temp Pulse Resp BP Pulse Ox 06/11/16 08:15 98.1 F 85 18 157/113 97 06/11/16 07:45 98.1 F 85 18 157/113 97 General: Conversant, No Apparent Distress HEENT: Atraumatic, Normocephaly, Mucus Membranes Moist Neck: No JVD, Normal carotid pulses Cardiac: Reg Rate and Rhythm, Normal S1 and S2, No Murmur Lungs: Normal Breath Sounds, No Wheeze, Rales, Rhonchi, Other (Mild dyspnea at rest yesterday appears better today. ) Neuro: Alert and responsive, No focal deficits noted Abdomen: Soft, Non-Tender Skin: No rashes noted on visualized skin Musculoskeletal: No Chest Wall Tenderness Extremities: No Clubbing, No Cyanosis, No Edema Results 06/11/16 09:05 06/11/16 01:21 Lab Results 06/10/16 06/10/16 06/10/16 21:05 21:05 21:05 WBC 13.9 H Hgb 16.2 Hct 44.3 Plt Count 196 INR 1.0 APTT 33.5 Sodium 140 D Potassium 3.7 Chloride 107 Carbon Dioxide 21 BUN 7 L Creatinine 0.76 Glucose 219 H Calcium 8.5 L Magnesium Total Bilirubin AST ALT Alkaline Phosphatase Troponin I 06/11/16 06/11/16 06/11/16 01:21 01:21 01:21 WBC 14.8 H Hgb 15.4 Hct 43.1 Plt Count 208 INR APTT Sodium 139 Potassium 3.2 L Chloride 108 Carbon Dioxide 21 BUN 7 L Creatinine 0.68 L Glucose 137 H Calcium 8.4 L Magnesium 1.5 L Total Bilirubin AST ALT Alkaline Phosphatase Troponin I 0.17 H* 06/11/16 06/11/16 06/11/16 01:21 06:32 06:32 WBC Hgb Hct Plt Count INR APTT 36.2 H Sodium 140 Potassium 3.2 L Chloride 109 Carbon Dioxide 21 BUN 7 L Creatinine 0.66 L Glucose 135 H Calcium 8.3 L Magnesium Total Bilirubin 0.7 AST 21 ALT 25 Alkaline Phosphatase 76 Troponin I 0.13 H* 06/11/16 09:05 WBC 18.8 H Hgb 15.5 Hct 43.7 Plt Count 184 INR APTT Sodium Potassium Chloride Carbon Dioxide BUN Creatinine Glucose Calcium Magnesium Total Bilirubin AST ALT Alkaline Phosphatase Troponin I - Imaging and Cardiology Chest Xray: pending Echo: pending - EKG Interpretation EKG results cardiology: personally reviewed Consult Discharge Plan - Plan Referrals: Otto Banks MD [Primary Care Provider] - 06/23/16 11:30 am
--- NOTE | 2016-06-11 11:08 | Electrocardiograph Report ---
[address] [place], [place] [address] Test Date: 2016-06-10 Pat Name: Rogers Perez Department: 103 Room: 2N03 Gender: M Audience Development Manager: : 1960 Requested By: Edwin Dennis Order Number: [id number] Reading MD: Deon Son MD Measurements Intervals [place] Rate: 98 P: 56 NV: 145 QRS: 53 QRSD: 122 T: 6 QT: 401 QTc: 456 Interpretive Statements SINUS RHYTHM ANTERIOR ISCHEMIA Electronically Signed On 06-11-2016 11:06:47 EST by Deon Son MD
--- NOTE | 2016-06-11 11:11 | Electrocardiograph Report ---
[address] [place], [place] [address] Test Date: 2016-06-10 Pat Name: Rogers Perez Department: 110 Room: 2N03 Gender: M Beverage Manager: : 1960 Requested By: Hakeem Montalvo Order Number: [id number] Reading MD: Deon Son MD Measurements Intervals [place] Rate: 81 P: 58 PA: 156 QRS: 50 QRSD: 121 T: 15 QT: 429 QTc: 466 Interpretive Statements SINUS RHYTHM ANTERIOR ISCHEMIA Electronically Signed On 06-11-2016 11:09:31 EST by Deon Son MD
[2016-06-11] MEDS ORDERED: amLODIPine 5 MG TABLET PO SCH (11:15)
[2016-06-11] MEDS ORDERED: Lidocaine -MPF 1% 5 ML AMPUL INFILT ONE (11:16)
--- NOTE | 2016-06-11 11:28 | ECHO - Doppler Report ---
Echocardiogram Name: Rogers Perez Date of Study: 06/11/2016 Date: 1960 Ht: 66.0 in Medical Record#: [id number] Age: 55 Wt: 146.0 lb Gender: Male BSA: 1.75 Order #: [id number] Location: [facility] Room #: 2N03 Reading Physician: Jesse Comer MD, [facility] [employer] Press Operator: Marcos Trammell RN Ordering Physician: Charlie Howe DO,[facility] Primary Physician: Otto Banks MD Indications: Dyspnea, Elevated Troponin Impressions: Mild LV systolic dysfunction, LVEF 45-50%. There is mild global LV hypokinesis. Mild left ventricular diastolic dysfunction. Mildly dilated RV with mild-moderate right ventricular hypokinesis. There is flattening of the IV septum consistent with RV volume/pressure overload. No significant valvular dysfunction. No evidence of pulmonary hypertension. Estimated RVSP = 28 mmHg. Suspect RVSP is underestimated on this study. Left Ventricular Wall Motion: Rest Echo Findings The apex, apical inferior, mid inferior, basal inferior, apical anterior, mid anterior, basal anterior, apical septal, mid inferior septal, basal inferior septal, apical lateral, mid anterior lateral, basal anterior lateral, mid anterior septal, mid inferior lateral, basal anterior septal and basal inferior lateral ovalle were hypokinetic. Findings: Study Quality * Technically adequate exam. ECG Findings * Normal sinus rhythm. Left Ventricle * Mild LV systolic dysfunction, LVEF 45-50%. There is mild global LV hypokinesis. * Normal LV chamber size and wall thickness. * Mild left ventricular diastolic dysfunction. Right Ventricle * Mildly dilated RV with mild-moderate right ventricular hypokinesis. * There is flattening of the IV septum consistent with RV volume/pressure overload. Left Atrium * Normal left atrial size. Right Atrium * Normal right atrial size. Aorta * Normally sized aortic root. Pericardium * There is no pericardial effusion present. IVC * Normal IVC dimensions and inspiratory collapse. Tricuspid Valve * Normal tricuspid valve structure. * No tricuspid stenosis. * Trace tricuspid regurgitation. * No evidence of pulmonary hypertension. Estimated RVSP = 28 mmHg. Suspect RVSP is underestimated on this study. Pulmonic Valve * Pulmonic valve is not well visualized. * No pulmonic stenosis. * Trace pulmonic regurgitation. Aortic Valve * Aortic valve not well visualized. Appears mildly sclerotic. * No aortic stenosis. * No aortic regurgitation. Mitral Valve * Normal mitral valve structure. * No mitral stenosis. * Trace mitral regurgitation. History Hypertension Diabetes Hypercholesteremia History of Smoking Years 34 Packs 0.5 Measurements: BP: 157/ 113 2D Normal Values RVIDd: 4.50 cm IVSd: 1.00 cm 0.6 - 1.0 cm LVIDd: 4.40 cm 3.7 - 5.6 cm LVPWd: 1.00 cm 0.6 - 1.1 cm LVIDs: 3.50 cm 1.5 - 3.6 cm AO: 3.30 cm < 4.0 cm LA volume: 40 Mitral Valve Peak E:.44 m/sec Peak A:.70 m/sec E/A Ratio:0.6 Tricuspid Valve TV Regurg Peak Grad: 25.00mmHg TV Regurg Peak Paco: 2.50m/sec Updated by Jesse Comer MD, [facility] on 06/11/2016 11:24:41 AM electronically signed on 06/11/2016 11:25:39 AM with status of Final Wall Motion Nice: 1=Normal, 2=Hypokinesis, 3=Akinesis, 4=Dyskinesis, 5=Aneurysmal, 6=Hyperkinetic, X=Not Visualized (Blank)=Missing
[2016-06-11 11:36] LABS: BUN/Creatinine Ratio 17 (6-26); Blood Urea Nitrogen 13 mg/dL (8-26); Carbon Dioxide 19 mEq/L (19-29); Chloride 108 mEq/L (98-109); Glucose 236 mg/dL (70-99); Magnesium 1.7 mg/dL (1.6-2.6); Osmolality,Calculated 296 (280-300); Phosphorous 3.1 mg/dL (2.3-4.7); Potassium 3.5 mEq/L (3.5-4.5); Sodium 139 mEq/L (136-145); eGFR For African Americans > 60 (> 60); eGFR For Non-African Americans > 60 (> 60)
--- NOTE | 2016-06-11 16:54 | Event Note ---
Date of Encounter: 06/11/16 Time of Encounter: 16:52 Results of echocardiogram reviewed. Low normal, mildly reduced EF. RV dilated and hypokinetic and IV septum flattened, which correlates with PE. This should improve with treatment of PE. Recommend repeat echocardiogram in 6 weeks. BP better with medication changes. No further inpatient cardiology recommendations. Please call with questions or concerns. Thanks, Charlie Howe DO, FACC
[2016-06-11] MEDS: Heparin 25,000 UNIT/500 ML D5W 25,000 UNIT/500 ML MLS IVC SCH (19:48)
[2016-06-11] MEDS: Insulin DETEMIR 100 UNIT/ML X5UNITS SQ SCH (19:53)
[2016-06-12 02:37] LABS: Basophils % 0.1 %; Eosinophils # 0.1 K/mcL (0.0-0.6); Eosinophils % 0.6 %; Hematocrit 40.5 % (37.5-50.1); Hemoglobin 14.3 g/dL (12.9-16.9); Immature Granulocytes % 0.7 % (0-4); Immature Platelets 4.1 % (1.1-6.1); Lymphocytes # 2.2 K/mcL (0.6-4.6); Lymphocytes % 15.8 %; Mean Corpuscular HGB Conc 35.3 g/dL (31.6-35.5); Mean Corpuscular Hemoglobin 32.3 pg (28.0-33.3); Mean Corpuscular Volume 91.4 fL (83.0-100.0); Mean Platelet Volume 9.4 fL (9.4-12.4); Monocytes % 7.4 %; Neutrophils # 10.3 K/mcL (1.6-8.9); Platelet Count 246 K/mcL (140-400); Red Blood Count 4.43 M/mcL (4.19-5.50); Red Cell Distribution Width 13.5 % (11.5-14.5); Segmented Neutrophils % 75.4 %
[2016-06-12 02:51] LABS: BUN/Creatinine Ratio 25 (6-26); Blood Urea Nitrogen 19 mg/dL (8-26); Calcium 8.6 mg/dL (8.6-10.8); Carbon Dioxide 25 mEq/L (19-29); Chloride 106 mEq/L (98-109); Glucose 86 mg/dL (70-99); Magnesium 1.5 mg/dL (1.6-2.6); Osmolality,Calculated 292 (280-300); Phosphorous 3.3 mg/dL (2.3-4.7); Potassium 3.3 mEq/L (3.5-4.5); Sodium 140 mEq/L (136-145); eGFR For African Americans > 60 (> 60); eGFR For Non-African Americans > 60 (> 60)
[2016-06-12] MEDS: *HR* Metoprolol 5 MG/5 ML VIAL IVP SCH (06:05)
--- NOTE | 2016-06-12 06:08 | Oncology Inp Consult Note ---
Date of Encounter: 06/12/16 Time of Encounter: 09:30 - Data of Consult Patient: new to practice Consult date: 06/12/16 Requesting Physician: Meredith Anton MD Primary Care Provider: Otto Banks MD - Consult Narrative Reason for consult: Bilateral pulmonary lesion History of present illness: Mr. Perez is a 55 year old gentleman seen in consultation regarding recently diagnosed acute pulmonary embolism with subtle embolus. Patient initially presented with diabetic ketoacidosis and had a chest CT angiogram for evaluation of unexplained respiratory symptoms which showed multiple bilateral pulmonary emboli with saddle embolus. Additional note was made of small bilateral pulmonary nodules and a lytic lesion in the sternum which is nonspecific but metastatic disease is not excluded. There is an additional sclerotic focus in the third and fourth ribs felt to possibly represent a nondisplaced, healing fractures. Similar findings in fourth and fifth ribs. On reviewing his records, he did have rib series chest x-ray in March 2016 for evaluation of post traumatic chest wall pain following a mechanical fall. X-rays were negative although there can be a false negative in the acute setting. For his saddle pulmonary embolus, and there is concern about right heart strain and he is being followed by cardiology. I reviewed Dr. Howe's consultation and appreciate his input. Oncology is consulted for recommendations regarding management of his bilateral pulmonary bruising. He is currently on heparin drip. Patient was seen and examined at bedside this morning. Chart review for details of ongoing care by hospital team. He reports significant improvement in his presenting symptoms and is feeling much better. He is maintaining good oxygenation while breathing room air. He feels like his condition is improved enough that he can be discharged and will be discussing further with the hospitalist during rounds today. He doesn't have any prior diagnosis of malignancy are relevant family history. He has not had any recent constitutional symptoms such as fevers, just no night sweats, weight loss, aquagenic pruritus etc. that can be treated to underlying malignancy. Rest of past medical, surgical, family, social history detailed below and verified with patient today. Review of systems: 12 point review of systems performed with patient and positive findings noted in history of present illness. All other systems are negative: Physical exam: Vital Signs Temp 98.2 F 06/12/16 04:53 Pulse 66 06/12/16 04:53 Resp 16 06/12/16 04:53 BP 123/84 06/12/16 04:53 Pulse Ox 97 06/12/16 00:00 GENERAL: Alert and oriented, comfortable appearing. Mental Status: Affect appropriate for circumstances HEENT: Sclerae anicteric. No mucositis or thrush. No other oral or pharyngeal lesions or erythema. Skin: No rashes or petechiae. No evidence of skin malignancy Lymph nodes: No cervical, supraclavicular, axillary, or inguinal adenopathy. Lungs: Clear to auscultation bilaterally. Clear to percussion bilaterally. Cardiovascular: Regular rate and rhythm. No gallops, murmurs, or rubs. Abdomen: Soft, nontender; No organomegaly or masses palpable. Extremities: No edema. No calf swelling or tenderness. No joint deformity. Neurologic: Alert, normal gait; no focal weakness or sensory abnormalities. Results: Laboratory Last Values WBC 13.6 K/mcL (4.3-11.1) H 06/12/16 02:30 RBC 4.43 M/mcL (4.19-5.50) 06/12/16 02:30 Hgb 14.3 g/dL (12.9-16.9) 06/12/16 02:30 Hct 40.5 % (37.5-50.1) 06/12/16 02:30 MCV 91.4 fL (83.0-100.0) 06/12/16 02:30 MCH 32.3 pg (28.0-33.3) 06/12/16 02:30 MCHC 35.3 g/dL (31.6-35.5) 06/12/16 02:30 RDW 13.5 % (11.5-14.5) 06/12/16 02:30 Plt Count 246 K/mcL (140-400) 06/12/16 02:30 MPV 9.4 fL (9.4-12.4) 06/12/16 02:30 Immature Gran % 0.7 % (0-4) 06/12/16 02:30 Seg Neutrophils % 75.4 % 06/12/16 02:30 Lymphocytes % 15.8 % 06/12/16 02:30 Monocytes % 7.4 % 06/12/16 02:30 Eosinophils % 0.6 % 06/12/16 02:30 Basophils % 0.1 % 06/12/16 02:30 Neutrophils # 10.3 K/mcL (1.6-8.9) H 06/12/16 02:30 Lymphocytes # 2.2 K/mcL (0.6-4.6) 06/12/16 02:30 Monocytes # 1.0 K/mcL (0.0-1.3) 06/12/16 02:30 Eosinophils # 0.1 K/mcL (0.0-0.6) 06/12/16 02:30 Basophils # 0.0 K/mcL (0.0-0.2) 06/12/16 02:30 Immature Plt Fraction 4.1 % (1.1-6.1) 06/12/16 02:30 PT 11.2 Seconds (9.4-12.1) 06/10/16 21:05 INR 1.0 06/10/16 21:05 APTT 67.3 Seconds (26.0-36.0) H 06/12/16 02:30 ABG pH 7.43 pH Units (7.32-7.45) 06/10/16 14:50 ABG pCO2 21 mmHg (35-45) L 06/10/16 14:50 ABG pO2 106 mmHg (85-104) H 06/10/16 14:50 ABG HCO3 13.9 mEQ/L (21-27) L 06/10/16 14:50 ABG Total CO2 14.5 mEq/L (20-26) L 06/10/16 14:50 ABG O2 Saturation 98 % (95-98) 06/10/16 14:50 ABG Base Excess -7.8 mEq/L (-2.0 to 3.0) L 06/10/16 14:50 VBG pH 7.50 pH Units (7.32-7.42) H 06/11/16 01:21 VBG pCO2 28 mmHg (41-51) L 06/11/16 01:21 VBG pO2 52 mmHg (25-40) H 06/11/16 01:21 VBG HCO3 21.8 mEq/L (21-27) 06/11/16 01:21 Blood Gas Modality MASK 06/10/16 14:50 Inspired O2 60 % 06/10/16 14:50 Sodium 140 mEq/L (136-145) 06/12/16 02:30 Potassium 3.3 mEq/L (3.5-4.5) L 06/12/16 02:30 Chloride 106 mEq/L (98-109) 06/12/16 02:30 Carbon Dioxide 25 mEq/L (19-29) 06/12/16 02:30 BUN 19 mg/dL (8-26) 06/12/16 02:30 Creatinine 0.77 mg/dL (0.72-1.25) 06/12/16 02:30 Est GFR ( Amer) > 60 (> 60) 06/12/16 02:30 Est GFR (Non-Af Amer) > 60 (> 60) 06/12/16 02:30 BUN/Creatinine Ratio 25 (6-26) 06/12/16 02:30 Glucose 86 mg/dL (70-99) 06/12/16 02:30 POC Glucose 111 (58-89) H 06/11/16 23:20 Est Mean Plasma Glucose 286 mg/dl 06/11/16 01:21 Hemoglobin A1c 11.6 % (-5.6) H 06/11/16 01:21 Serum Osmolality 305 mOsm/kg (280-300) H 06/10/16 18:46 Calculated Osmolality 292 (280-300) 06/12/16 02:30 Lactic Acid 2.4 mmol/L (0.5-2.2) H 06/11/16 11:15 Calcium 8.6 mg/dL (8.6-10.8) 06/12/16 02:30 Phosphorus 3.3 mg/dL (2.3-4.7) 06/12/16 02:30 Magnesium 1.5 mg/dL (1.6-2.6) L 06/12/16 02:30 Total Bilirubin 0.7 mg/dL (0.2-1.2) 06/11/16 01:21 AST 21 Units/L (5-34) 06/11/16 01:21 ALT 25 Units/L (0-55) 06/11/16 01:21 Alkaline Phosphatase 76 Units/L (38-126) 06/11/16 01:21 Troponin I 0.13 ng/mL (0-0.03) H* 06/11/16 06:32 B-Natriuretic Peptide 382 pg/mL (0-100) H 06/10/16 14:50 Serum Total Protein 6.4 g/dL (6.0-8.3) 06/11/16 01:21 Albumin 2.8 g/dL (3.5-5.0) L 06/11/16 01:21 Globulin 3.6 g/dL (2.4-3.5) H 06/11/16 01:21 Albumin/Globulin Ratio 0.8 (1.1-2.2) L 06/11/16 01:21 Triglycerides 89 mg/dL (< 150) 06/11/16 01:21 Cholesterol 253 mg/dL (< 200) H 06/11/16 01:21 LDL Cholesterol, Calc 181 mg/dL (0-99) H 06/11/16 01:21 VLDL Cholesterol, Calc 18 mg/dL (< 31) 06/11/16 01:21 HDL Cholesterol 54 mg/dL (40-59) 06/11/16 01:21 Cholesterol/HDL Ratio 4.7 (0-4.9) 06/11/16 01:21 Beta-Hydroxybutyric Acd 0.21 mmol/L (0.02-0.27) 06/10/16 21:05 Urine Color Yellow (Yellow) 06/10/16 16:50 Urine Clarity Clear (Clear) 06/10/16 16:50 Urine pH 6.0 pH Units (5.0-8.0) 06/10/16 16:50 Ur Specific Allison 1.030 (1.010-1.025) H 06/10/16 16:50 Urine Protein Negative mg/dL (Neg-Trace) 06/10/16 16:50 Urine Glucose (UA) >=1000 mg/dL (Normal) H 06/10/16 16:50 Urine Ketones Negative mg/dL (Negative) 06/10/16 16:50 Urine Blood Negative (Negative) 06/10/16 16:50 Urine Nitrite Negative (Negative) 06/10/16 16:50 Urine Bilirubin Negative (Negative) 06/10/16 16:50 Urine Urobilinogen Normal mg/dL (Normal) 06/10/16 16:50 Ur Leukocyte Esterase Negative (Negative) 06/10/16 16:50 Ur Culture Indicated? NO (NO) 06/10/16 16:50 Specimen Rejected Hemolyzed 06/11/16 09:05 Radiographic studies: I personally reviewed and interpreted patient's most recent imaging studies dated 06/21/16. I discussed the findings with the patient today. Chest X-Ray 06/10/16 14:32 IMPRESSION: Chronic changes at the left lung base, though no acute cardiopulmonary process is identified. D/ / Tre Kay MD / Tre aKy MD Interpreting Provider: Tre Kay MD Pulmonary Perfusion Imaging 06/10/16 20:40 IMPRESSION: This is a high probability scan pattern for pulmonary embolus. Critical results were called by Dr. Qamar Vazquez MD to Hakeem Montalvo on 06/10/2016 at 22:55. D/ / Qamar Vazquez MD / Qamar Vazquez MD Interpreting Provider: Qamar Vazquez MD Chest CTA 06/11/16 00:20 IMPRESSION: 1. Multiple bilateral pulmonary emboli including saddle embolus. 2. Coronary artery disease. 3. Small bilateral pulmonary nodules. See recommendations below. 4. The lytic lesion in the sternum is nonspecific though metastatic disease must be considered. The sclerotic foci in the left 3rd and 4th ribs likely represent nondisplaced healing fractures given the presence of recent healing fractures in the right 4th and 5th ribs. Critical results were called by Dr. Qamar Vazquez MD to Hakeem Montalvo on 06/11/2016 at 01:10. RECOMMENDATIONS: Fleischner Society guidelines for follow-up and management of incidentally detected pulmonary nodules in this patient: In a low-risk patient, no routine follow-up. In a high-risk patient, optional CT at 12 months. Radiology 2017 http://pubs.rsna.org/doi/full/10.1148/radiol.3144474064 D/ / Qamar Vazquez MD / Qamar Vazquez MD Interpreting Provider: Qamar Vazquez MD Impression/recommendations: Acute pulmonary embolus: I agree with ongoing anticoagulant radiation with heparin infusion. Since patient's overall condition is improving, I think he can be transitioned to low molecular weight heparin and monitored over the next 24 hours if no country indication from a cardiac standpoint. If he is medically optimal, I will recommend to transition him to one of several options for oral anticoagulation including Coumadin, Pradaxa, Rivaroxaban, Eliquis depending on his comfort situation. Upon discharge, I will arrange operation follow-up for radiographic surveillance , anticoagulation monitoring and further recommendation regarding anticoagulation duration etc. Suspected hypercoagulable state: No clear provoking factor for his new PE diagnosis. Recommend workup for hypercoagulable state including factor V Leiden and prothrombin gene mutation analysis. Please send d-dimer to establish baseline for future comparison since normalized d-dimer may give an indication of his clotting recurrence risk if there is consideration. In anticoagulation in the future. We will complete the rest of his anticoagulation studies on an outpatient basis as clinically indicated. Lytic lesions sternum: This is indeterminate for malignancy although he does have some smoking history which puts malignancy in the differential. We will review his case in our tumor conference and if recommended, we will arrange for him to have biopsy as an outpatient for tissue diagnosis. In the interim, I would recommend that we send SPEP and free light chain analysis to evaluate the possibility of an underlying plasma cell dyscrasia. Bilateral pulmonary nodules: Indeterminate and will monitor on subsequent scans. We'll follow the patient along side you during this hospitalization but please do not hesitate to call regarding interval hematologic questions as they arise. Thank you for your excellent ongoing care for allowing us to see him while in- house. This report was created using voice recognition software and may contain errors. It was signed but not edited to expedite communication. Past Med Surg Social Fam HX - Past Medical History Medical history: diabetes, hyperlipidemia, hypertension Psychiatric history: no psych history - Social History Smoking Status: Current every day smoker Packs per day: <0.5 Smokeless Tobacco Status: No Alcohol use: occasionally Drug use: none - Family History Mother Hx Family Endocrine Disorder: Yes (DIABETES.) Medications and Allergies Amlodipine [Norvasc] 5 mg PO DAILY 06/10/16 [History] Hydrochlorothiazide 25 mg PO DAILY 06/10/16 [History] Metoprolol Tartrate [Lopressor] 50 mg PO BID 06/10/16 [History] Allergies atorvastatin [From Lipitor] Adverse Reaction (Verified 06/10/16 17:05) Muscle Pain lisinopril Adverse Reaction (Verified 06/10/16 14:28) Hypotension metformin Adverse Reaction (Verified 06/10/16 17:05) Diarrhea Oncology - Exam - Constitutional Vitals: Temp Pulse Resp BP Pulse Ox 98.2 F 66 16 123/84 97 06/12/16 04:53 06/12/16 04:53 06/12/16 04:53 06/12/16 04:53 06/12/16 00:00 Oncology - Results - Labs Labs: Short CBC 06/11/16 06/12/16 Range/Units 09:05 02:30 WBC 18.8 H 13.6 H (4.3-11.1) K/mcL Hgb 15.5 14.3 (12.9-16.9) g/dL Hct 43.7 40.5 (37.5-50.1) % Plt Count 184 246 (140-400) K/mcL Neutrophils # 16.1 H 10.3 H (1.6-8.9) K/mcL BMP 06/11/16 06/12/16 11:15 02:30 Sodium 139 140 Potassium 3.5 3.3 L Chloride 108 106 Carbon Dioxide 19 25 BUN 13 19 Creatinine 0.77 0.77 Glucose 236 H 86 Calcium 9.0 8.6 Cardiac Enzymes 06/11/16 Range/Units 06:32 Troponin I 0.13 H* (0-0.03) ng/mL Consult Discharge Plan - Plan Referrals: Gilda Antoine MD [Partnered Physician] - 06/24/16 1:00 pm Otto Banks MD [Primary Care Provider] - 06/23/16 11:30 am Charlie Howe DO [Partnered Physician] - (OFFICE WILL CALL WITH APPOINTMENT) Omar Porras MD [Partnered Physician] - 06/26/16 2:50 pm
[2016-06-12] MEDS: Famotidine 20 MG/2 ML VIAL IVP SCH ×2 (06:33→17:48)
[2016-06-12] MEDS ORDERED: Magnesium Sulfate 1 GM in D5% in Water 100 ML IVPB ONE (07:28)
--- NOTE | 2016-06-12 08:13 | Pulmonology Consult Note ---
Date of Encounter: 06/12/16 Time of Encounter: 08:13 Assessment and Plan (1) Pulmonary embolism Current Visit: Yes Status: Acute This is a submassive PE with evidence of right heart strain however hemodynamically stable. The treatment at this point would be continued anticoagulation for at least 3 months and ideally no shorter than 6 months It is unclear that if his sedentary job at increased risk for developing venous thromboembolism or if he has another hypercoagulable state such as malignancy I agree with oncology consult for further evaluation of this Recommend following up patient in 6 weeks in clinic with repeat echocardiogram and likely at the six-month hyacinth patient would be at increased risk for chronic thromboembolic pulmonary hypertension which the risk and be substantially decreased (if not eliminated) by continuous anticoagulation At this point there is really no strong data to support the placement of IVC filter and patient had lower extremity DVT Would start NOAC or Warfarin at this time. Defer mgnt to primary service Qualifiers: Pulmonary embolism type: saddle Chronicity: unspecified Acute cor pulmonale presence: without acute cor pulmonale Qualified Code(s): I26.92 - Saddle embolus of pulmonary artery without acute cor pulmonale (2) Pneumonia Current Visit: Yes Status: Acute The case for pneumonia for which she is receiving treatment with Augmentin as debatable at best. I recommend no longer than a 5 day course unless clinically warranted at that time Qualifiers: Qualified Code(s): J18.9 - Pneumonia, unspecified organism (3) Lung nodule Current Visit: Yes Status: Acute We will need follow-up CT scan in one year (4) Tobacco abuse Current Visit: Yes Status: Acute I had a 5 minute discussion with the patient about smoking cessation. Problems with continued smoking including respiratory, cardiovascular and oncological problems were discussed. Advice on smoking cessation was reiterated including methods of quitting and different medicines and support systems available for smoking cessation was discussed. History of Present Illness Consult date: 06/12/16 Requesting physician: Meredith Anton Reason for consult: pulmonary embolism Chief complaint: Shortness of breath History of present illness: This is a 55-year-old gentleman with a history of diabetes hyperlipidemia hypertension who presented with a three-day history of shortness of breath immediately was noted to have elevated troponin with nonspecific ST changes cardiology was consulted and think this represented ACS recommended medical management further workup including VQ scan and CT was notable for large saddle embolus with multiple filling that defects bilateral pulmonary arteries. 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 Additionally there was a sternal lytic lesion that was concerning for possible malignancy including metastatic disease. Patient smokes about a half a pack a day and has since he was 20. Other significant industrial exposures he was in the in the [employer] but serves stateside no exotic pets at home and no recent travel did notice about a month history of a nonproductive cough without pleuritic chest pain Past Med Surg Social Fam HX - Past Medical History Medical history: diabetes, hyperlipidemia, hypertension Psychiatric history: no psych history - Social History Smoking Status: Current every day smoker Packs per day: <0.5 Smokeless Tobacco Status: No Alcohol use: occasionally Drug use: none - Family History Mother Hx Family Endocrine Disorder: Yes (DIABETES.) Medications and Allergies Amlodipine [Norvasc] 5 mg PO DAILY 06/10/16 [History] Hydrochlorothiazide 25 mg PO DAILY 06/10/16 [History] Metoprolol Tartrate [Lopressor] 50 mg PO BID 06/10/16 [History] Allergies atorvastatin [From Lipitor] Adverse Reaction (Verified 06/10/16 17:05) Muscle Pain lisinopril Adverse Reaction (Verified 06/10/16 14:28) Hypotension metformin Adverse Reaction (Verified 06/10/16 17:05) Diarrhea All Systems: A 10-system review of systems was performed and is negative for pertinent findings except as documented above in the HPI. Physical Examination Vital Signs: Vital Signs, Last 4 Hours Temp Pulse Resp BP Pulse Ox 06/12/16 08:04 97.1 F L 72 18 98 06/12/16 04:53 98.2 F 66 16 123/84 General appearance: no acute distress Eyes: nonicteric ENT: oropharynx moist Effort: normal Auscultation: bilateral: clear Cardiovascular: regular rate and rhythm Gastrointestinal: normoactive bowel sounds Integumentary: normal Extremities: no cyanosis, no edema, no clubbing Musculoskeletal: no deformities normal mental status, non-focal exam, motor strength normal and symmetric mood appropriate Results - Laboratory Findings CBC and BMP: 06/12/16 02:30 06/12/16 02:30 ABG ABG pH 7.43 pH Units (7.32-7.45) 06/10/16 14:50 ABG pCO2 21 mmHg (35-45) L 06/10/16 14:50 ABG pO2 106 mmHg (85-104) H 06/10/16 14:50 ABG O2 Saturation 98 % (95-98) 06/10/16 14:50 PT/INR, D-dimer PT 11.2 Seconds (9.4-12.1) 06/10/16 21:05 Abnormal lab findings: Abnormal lab results WBC 13.6 K/mcL (4.3-11.1) H 06/12/16 02:30 Neutrophils # 10.3 K/mcL (1.6-8.9) H 06/12/16 02:30 APTT 67.3 Seconds (26.0-36.0) H 06/12/16 02:30 ABG pCO2 21 mmHg (35-45) L 06/10/16 14:50 ABG pO2 106 mmHg (85-104) H 06/10/16 14:50 ABG HCO3 13.9 mEQ/L (21-27) L 06/10/16 14:50 ABG Total CO2 14.5 mEq/L (20-26) L 06/10/16 14:50 ABG Base Excess -7.8 mEq/L (-2.0 to 3.0) L 06/10/16 14:50 VBG pH 7.50 pH Units (7.32-7.42) H 06/11/16 01:21 VBG pCO2 28 mmHg (41-51) L 06/11/16 01:21 VBG pO2 52 mmHg (25-40) H 06/11/16 01:21 Potassium 3.3 mEq/L (3.5-4.5) L 06/12/16 02:30 POC Glucose 111 (58-89) H 06/11/16 23:20 Hemoglobin A1c 11.6 % (-5.6) H 06/11/16 01:21 Serum Osmolality 305 mOsm/kg (280-300) H 06/10/16 18:46 Lactic Acid 2.4 mmol/L (0.5-2.2) H 06/11/16 11:15 Magnesium 1.5 mg/dL (1.6-2.6) L 06/12/16 02:30 Troponin I 0.13 ng/mL (0-0.03) H* 06/11/16 06:32 B-Natriuretic Peptide 382 pg/mL (0-100) H 06/10/16 14:50 Albumin 2.8 g/dL (3.5-5.0) L 06/11/16 01:21 Globulin 3.6 g/dL (2.4-3.5) H 06/11/16 01:21 Albumin/Globulin Ratio 0.8 (1.1-2.2) L 06/11/16 01:21 Cholesterol 253 mg/dL (< 200) H 06/11/16 01:21 LDL Cholesterol, Calc 181 mg/dL (0-99) H 06/11/16 01:21 Ur Specific [place] 1.030 (1.010-1.025) H 06/10/16 16:50 Urine Glucose (UA) >=1000 mg/dL (Normal) H 06/10/16 16:50 - Diagnostic Findings Chest x-ray: report reviewed, image reviewed CT scan - chest: image reviewed U/S of Legs: report reviewed - Clinical Findings Intake & Output: Intake & Output 06/11/16 06/12/16 06/12/16 23:59 07:59 15:59 Intake Total 852 / 852 286 / 286 Output Total 850 / 850 Balance 2 / 2 286 / 286 Weight 66.4 kg Consult Discharge Plan - Plan Referrals: Otto Banks MD [Primary Care Provider] - 06/23/16 11:30 am
[2016-06-12] MEDS: hydroCHLOROthiazide 25 MG TABLET PO SCH (08:44)
[2016-06-12] MEDS: Aspirin Enteric Coated 81 MG Tablet PO SCH (08:45)
[2016-06-12] MEDS: amLODIPine 5 MG TABLET PO SCH (08:45)
[2016-06-12] MEDS: Insulin LISPRO 300 UNITS/3 ML VIAL SQ SCH ×4 (08:48→21:58)
[2016-06-12] MEDS ORDERED: *HR* Enoxaparin 80 MG/0.8 ML SYRINGE SQ SCH ×2 (09:08→22:00)
--- NOTE | 2016-06-12 13:08 | Internal Med Progress Note ---
Date of Encounter: 06/12/16 Time of Encounter: 11:50 - Assessment and plan (1) Pulmonary embolism Current Visit: Yes Status: Acute Assessment and plan: CTA chest: Bilateral PE including Saddle Embolus. Small bilateral pulmonary nodules. Lytic lesion in the sternum-Concern for Malignancy Discontinue Heparin drip. Started Lovenox therapeutic dose. As per Dr. Shaw , patient will benefit from receiving a few doses of Lovenox and then he can be transitioned to oral anticoagulation therapy in am. Will order SPEP, free light chains, protein electrophoresis to initiate work up for evaluation of malignancy. Heme/Onc consultation with Dr. Shaw appreciated. Dyspnea resolved at this time. currently saturating well on room air. continue O2 supplementation as needed. monitor O2 sat, patient has extensive smoking history, may have underlying undiagnosed COPD. Pulmonary input appreciated Qualifiers: Pulmonary embolism type: saddle Chronicity: unspecified Acute cor pulmonale presence: without acute cor pulmonale Qualified Code(s): I26.92 - Saddle embolus of pulmonary artery without acute cor pulmonale (2) Diabetic ketoacidosis Current Visit: Yes Status: Acute Assessment and plan: secondary to noncompliance Resolved at this time Pt demonstrates understanding of using insulin therapy Continue Levemir and sliding scale insulin algorithm continue to monitor fingerstick and blood glucose. Qualifiers: Diabetes mellitus type: type 1 Diabetes mellitus complication detail: without coma Qualified Code(s): E10.10 - Type 1 diabetes mellitus with ketoacidosis without coma (3) Lactic acidosis Current Visit: Yes Status: Acute Assessment and plan: Likely secondary to DKA Improving will obtain repeat Lactate in morning (4) Non-STEMI (non-ST elevated myocardial infarction) Current Visit: Yes Status: Deleted Assessment and plan: Elevated TNI with exertional dyspnea and EKG changes (inverted Twaves) TNI trending down, no chest pain reported at this time Given the severity of PE, will hold off on C at this time and continue with medical management continue anticoagulation 2D echo consistent with left heart strain from the PE patient to follow up Cardio and pulmonary after discharge with a repeat 2D echo continue asa,bb, statin cardiology on board-consultation appreciated. (5) Hypertension Current Visit: Yes Status: Acute Assessment and plan: BP within acceptable range continue home BP meds (Metoprolol, Amlodipine, and Hctz) Renal function improved and at baseline. Qualifiers: Hypertension type: essential hypertension Qualified Code(s): I10 - Essential (primary) hypertension (6) Hypokalemia Current Visit: Yes Status: Acute Assessment and plan: K and Mg supplemented continue to monitor electrolytes and replace as needed (7) DVT prophylaxis Current Visit: Yes Status: Acute Assessment and plan: Anticoagulated with Lovenox (8) Tobacco abuse Current Visit: Yes Status: Acute Assessment and plan: Smoking cessation counseling provided patient reports of trying to cut down Refused nicotine replacement therapy - Subjective Interval history: Patient is a 55-year-old male admitted for [facility] secondary to noncompliance and shortness of breath. After further evaluation he was noted to have bilateral PE with saddle embolus on CTA chest. Patient seen and examined at bedside. resting comfortably. Denies any chest pain , sob at this time. Reported of a tooth ache with concern for abscess yesterday evening for which he was started on Augmentin. Reports of improvement in pain. No overnight issues were reported. - Constitutional Vitals: Temp Pulse Resp BP Pulse Ox 98.2 F 61 18 123/84 98 06/12/16 11:36 06/12/16 11:46 06/12/16 11:36 06/12/16 11:36 06/12/16 08:04 General appearance: Present: cooperative, A&O X 3, pleasant, no acute distress, answers questions appropriately - Head Head exam: Present: atraumatic, normocephalic - Eye Eye exam: Present: PERRL, conjuntiva pink, sclera anicteric - Respiratory Respiratory exam: Present: CTAB. Absent: accessory muscle use, rales, rhonchi, wheezes - Cardiovascular Cardiovascular exam: Present: RRR, +S1, +S2. Absent: diastolic murmur, gallop, rubs, systolic murmur - GI/Abdominal GI/Abdominal exam: Present: normal bowel sounds, soft, no peritoneal signs. Absent: distended, tenderness - Extremities Exam Extremities exam: Present: warm, radial pulses palpable and symetrical. Absent : calf tenderness, cyanotic, pedal edema - Neurological Exam Neurological exam: Present: alert, oriented X3, no focal deficits - Psychiatric Psychiatric exam: Present: normal affect, normal mood Internal Medicine: Result - Labs CBC & Chem 7: 06/12/16 02:30 06/12/16 02:30 Labs: Short CBC 06/12/16 Range/Units 02:30 WBC 13.6 H (4.3-11.1) K/mcL Hgb 14.3 (12.9-16.9) g/dL Hct 40.5 (37.5-50.1) % Plt Count 246 (140-400) K/mcL Neutrophils # 10.3 H (1.6-8.9) K/mcL BMP 06/12/16 02:30 Sodium 140 Potassium 3.3 L Chloride 106 Carbon Dioxide 25 BUN 19 Creatinine 0.77 Glucose 86 Calcium 8.6 - ABG Interpretation ABG results: ABG ABG pH 7.43 pH Units (7.32-7.45) 06/10/16 14:50 ABG pCO2 21 mmHg (35-45) L 06/10/16 14:50 ABG pO2 106 mmHg (85-104) H 06/10/16 14:50 ABG O2 Saturation 98 % (95-98) 06/10/16 14:50 PT/INR, D-dimer PT 11.2 Seconds (9.4-12.1) 06/10/16 21:05 Consult Discharge Plan - Plan Referrals: Gilda Antoine MD [Partnered Physician] - 06/24/16 1:00 pm Otto Banks MD [Primary Care Provider] - 06/23/16 11:30 am Charlie Howe DO [Partnered Physician] - 06/19/16 2:15 pm () Omar Porras MD [Partnered Physician] - 06/26/16 2:50 pm
--- NOTE | 2016-06-12 18:37 | Venous Imaging Report ---
LE Venous Duplex Patient Name:Rogers Perez Order Number:[id number] Procedure Date:06/11/2016 Date:1960Age:55 yrs Gender:Male Location:[facility] Room #: [address] [employer] Operator:Marcos Trammell RN Referring MD:Meredith Anton MD route inspector:Otto Banks MD Reading MD:Herrera Ramirez MD , FACS Secondary Indications: Risk Factors Yes/No Hypertension Yes Diabetes Yes Hypercholesterolemia Yes Smoking Current Yes Anticoagulants Yes Previous Vascular Surgery No Hx of DVT No Hx of Chemotherapy No Trauma to Veins No Recent Surgery No Hx of Superficial Phlebitis No [place] Filter No Impressions: Lower extremity abnormal deep exam: right popliteal vein demonstrates acute thrombosis. Right lower extremity: normal superficial exam. Left lower extremity: normal superficial and deep exam. Recommendations: Test completed on 06/11/2016 at 10:40:00 am. Findings Venous Duplex Results: Right: Venous imaging of the lower extremity reveals full patency and normal vessel compressibility of the right distal iliac, right common femoral, right superficial femoral, right posterior tibial, right peroneal, right great saphenous and right lesser saphenous. Doppler signals in the evaluated veins were normal. There is an acute thrombus seen in the right popliteal. It demonstrates an incompressible vein. Flow was absent and it did not augment. Left: Venous imaging of the lower extremity reveals full patency and normal vessel compressibility of the left distal iliac, left common femoral, left superficial femoral, left popliteal, left posterior tibial, left peroneal, left great saphenous and left lesser saphenous. Doppler signals in the evaluated veins were normal. Prior Study: No prior study available for comparison. Lower Extremity Venous Duplex Side Vein Compress Spontaneous Flow Augment Diameter (cm) Depth (cm) Right Distal Iliac Normal Yes Phasic Yes Right Common Femoral Normal Yes Phasic Yes Right Superficial Femoral Normal Yes Phasic Yes Right Popliteal None no Absent no Right Posterior Tibial Normal Yes Phasic Yes Right Peroneal Normal Yes Phasic Yes Right Great Saphenous Normal Yes Phasic Yes Right Lesser Saphenous Normal Yes Phasic Yes Left Distal Iliac Normal Yes Phasic Yes Left Common Femoral Normal Yes Phasic Yes Left Superficial Femoral Normal Yes Phasic Yes Left Popliteal Normal Yes Phasic Yes Left Posterior Tibial Normal Yes Phasic Yes Left Peroneal Normal Yes Phasic Yes Left Great Saphenous Normal Yes Phasic Yes Left Lesser Saphenous Normal Yes Phasic Yes Updated by Herrera Ramirez MD, FACS on 06/12/2016 6:31:39 PM Herrera Ramirez MD electronically signed on 06/12/2016 6:32:06 PM with status of Final
[2016-06-12] MEDS: Insulin DETEMIR 100 UNIT/ML X5UNITS SQ SCH (21:55)
[2016-06-13 03:52] LABS: Basophils % 0.2 %; Eosinophils # 0.1 K/mcL (0.0-0.6); Eosinophils % 1.4 %; Hemoglobin 15.6 g/dL (12.9-16.9); Immature Granulocytes % 0.5 % (0-4); Immature Platelets 4.2 % (1.1-6.1); Mean Corpuscular HGB Conc 35.5 g/dL (31.6-35.5); Mean Corpuscular Hemoglobin 32.1 pg (28.0-33.3); Mean Corpuscular Volume 90.5 fL (83.0-100.0); Mean Platelet Volume 9.1 fL (9.4-12.4); Monocytes # 0.7 K/mcL (0.0-1.3); Monocytes % 8.5 %; Neutrophils # 5.5 K/mcL (1.6-8.9); Platelet Count 264 K/mcL (140-400); Red Blood Count 4.86 M/mcL (4.19-5.50); Red Cell Distribution Width 13.2 % (11.5-14.5); Segmented Neutrophils % 65.4 %
[2016-06-13 04:04] LABS: BUN/Creatinine Ratio 17 (6-26); Blood Urea Nitrogen 13 mg/dL (8-26); Calcium 8.7 mg/dL (8.6-10.8); Carbon Dioxide 22 mEq/L (19-29); Chloride 104 mEq/L (98-109); Glucose 163 mg/dL (70-99); Magnesium 1.4 mg/dL (1.6-2.6); Osmolality,Calculated 286 (280-300); Phosphorous 3.4 mg/dL (2.3-4.7); Potassium 3.5 mEq/L (3.5-4.5); Sodium 136 mEq/L (136-145); eGFR For African Americans > 60 (> 60); eGFR For Non-African Americans > 60 (> 60)
[2016-06-13] MEDS: Famotidine 20 MG/2 ML VIAL IVP SCH (06:01)
[2016-06-13] MEDS ORDERED: Magnesium Sulfate 2 GM in D5% in Water 100 ML IVPB ONE (07:35)
[2016-06-13] MEDS: hydroCHLOROthiazide 25 MG TABLET PO SCH (07:49)
[2016-06-13] MEDS: amLODIPine 5 MG TABLET PO SCH (07:49)
[2016-06-13] MEDS: Aspirin Enteric Coated 81 MG Tablet PO SCH (07:49)
[2016-06-13] MEDS: Insulin LISPRO 300 UNITS/3 ML VIAL SQ SCH (07:51)
[2016-06-13] MEDS ORDERED: *HR* Enoxaparin 80 MG/0.8 ML SYRINGE SQ SCH (09:00)
[2016-06-13 09:17] VITALS: BP 108/80
--- NOTE | 2016-06-13 09:27 | Discharge Summary ---
Date of Encounter: 06/13/16 Time of Encounter: 09:21 - Discharge Diagnosis (1) Pulmonary embolism Priority: Primary Status: Acute Qualifiers: Pulmonary embolism type: saddle Chronicity: unspecified Acute cor pulmonale presence: without acute cor pulmonale Qualified Code(s): I26.92 - Saddle embolus of pulmonary artery without acute cor pulmonale (2) Diabetic ketoacidosis Priority: Primary Status: Acute Qualifiers: Diabetes mellitus type: type 1 Diabetes mellitus complication detail: without coma Qualified Code(s): E10.10 - Type 1 diabetes mellitus with ketoacidosis without coma (3) Lactic acidosis Priority: Secondary Status: Resolved (4) Non-STEMI (non-ST elevated myocardial infarction) Priority: Secondary Status: Acute (5) Hypertension Priority: Secondary Status: Chronic Qualifiers: Hypertension type: essential hypertension Qualified Code(s): I10 - Essential (primary) hypertension (6) Hypokalemia Priority: Secondary Status: Acute (7) DVT prophylaxis Priority: Secondary Status: Acute (8) Tobacco abuse Priority: Secondary Status: Chronic (9) Toothache Priority: Secondary Status: Acute Comments: was started on Augmentin pt to follow up with a Dentist after his discharge. - Discharge Medications Prescriptions: Ipratropium/Albuterol Neb [Duoneb] 3 ml IH [id number] PRN #5 inhsol PRN Reason: Shortness Of Breath/Wheezing Amlodipine [Norvasc] 5 mg PO DAILY #30 tablet Amoxicillin/Clavulanate [Augmentin] 875 mg PO BIDWM #5 tablet Apixaban [Eliquis] 5 mg PO BID #60 tablet Aspirin Enteric Coated [Aspirin EC] 81 mg PO DAILY #30 tablet. Hydrochlorothiazide 25 mg PO DAILY #30 tablet Insulin DETEMIR [Levemir Flextouch] 14 unit SQ DAILY #5 insuln.pen Metoprolol Tartrate [Lopressor] 50 mg PO BID #60 tablet Simvastatin [Zocor] 40 mg PO HS #30 tablet Home Medications: Hydrochlorothiazide 25 mg PO DAILY 06/10/16 [History] Amlodipine [Norvasc] 5 mg PO DAILY #30 tablet 06/13/16 [Rx] Amoxicillin/Clavulanate [Augmentin] 875 mg PO BIDWM #5 tablet 06/13/16 [Rx] Apixaban [Eliquis] 5 mg PO BID #60 tablet 06/13/16 [Rx] Aspirin Enteric Coated [Aspirin EC] 81 mg PO DAILY #30 tablet. 06/13/16 [Rx] Hydrochlorothiazide 25 mg PO DAILY #30 tablet 06/13/16 [Rx] Insulin DETEMIR [Levemir Flextouch] 14 unit SQ DAILY #5 insuln.pen 06/13/16 [Rx] Ipratropium/Albuterol Neb [Duoneb] 3 ml IH [id number] PRN #5 inhsol 06/13/16 [Rx] Metoprolol Tartrate [Lopressor] 50 mg PO BID #60 tablet 06/13/16 [Rx] Simvastatin [Zocor] 40 mg PO HS #30 tablet 06/13/16 [Rx] Allergies/Adverse Reactions: Allergies atorvastatin [From Lipitor] Adverse Reaction (Verified 06/10/16 17:05) Muscle Pain lisinopril Adverse Reaction (Verified 06/10/16 14:28) Hypotension metformin Adverse Reaction (Verified 06/10/16 17:05) Diarrhea Procedures/tests Complete & Pending: Procedures Performed prior 72 hours Category Date Time Status CT angio chest [CT] Stat Cat Scan 06/11/16 00:20 Completed NM pul vent and perfuse [NM] Stat Exams 06/10/16 20:40 Completed EKG [ECG 12 lead ECG] [ECG] Routine Y 06/10/16 23:53 Completed Venous Doppler [EV venous imaging LE BI] Stat Y 06/11/16 08:52 Completed Date of admission: 06/10/16 19:11 Primary care physician: Otto Banks MD Consults: 06/11/16 08:56 Consult to Oncology Hematology [CONS] Stat Consulting Provider: Florian Ann Reason for Consult: saddle embolus/PE with lytic lesion in the sternum concerning for malignancy Call Completed: Yes 06/11/16 09:26 Consult to Lead Printer [CONS] Routine Comment: 06/11/16 11:16 Consult to Invasive Line Access Team [CONS] Routine Reason for Consult: Power Comptche Insertion Line Type: EPIV PICC line indications: Frequent Blood Sampling Time Notified: 11:16 Call Completed: Yes 06/11/16 12:05 Consult to Invasive Line Access Team [CONS] Routine Reason for Consult: poor access, frequent labs Line Type: EPIV 06/11/16 16:01 Consult to Pulmonology [CONS] Routine Consulting Provider: [facility] Reason for Consult: new onset of bilateral PE and saddle embolus Call Completed: No Discharging clinician: Meredith Anton Anticipated date of discharge: 06/13/16 - Patient Status Disposition: Home, Self-Care Condition: Good Functional capacity at discharge: independent ambulation Overall status at discharge: patient is back to baseline - Discharge Instructions Follow Up With: Gilda Antoine MD [Partnered Physician] - 06/24/16 1:00 pm Otto Banks MD [Primary Care Provider] - 06/23/16 11:30 am Charlie Howe DO [Partnered Physician] - 06/19/16 2:15 pm () Omar Porras MD [Partnered Physician] - 06/26/16 2:50 pm Additional Instructions: Please follow-up with your primary care physician, licensed massage therapist, scalemaker, hematology/oncologist after discharge. All the appointments have been made for you as listed above. Please continue to take your insulin as prescribed. Please check your fingerstick glucose 4 times a day (fasting, before meals, 2 hours after meals, before bedtime). Please keep a log of these readings and take it with you for your follow-up with your primary care physician. Your insulin regimen will be adjusted by your primary care physician as per these readings. Your goal fingerstick glucose is less than 140 fasting, and less than 180 two hours after meals. If you continue to have elevated blood glucose, please consult her primary care physician. Eliquis, amlodipine, metoprolol, aspirin, hydrochlorothiazide, insulin, simvastatin has been added to your home medication regimen please take these medications as prescribed. Please take Augmentin for 2 more days and follow up with a dentist after discharge from the hospital. Please seek medical help if you have difficulty breathing or chest pain. If you experience any acute bleeding, please discontinue Eliquis, and seek medical help immediately. - Diet and Activity Activity: resume usual activities as tolerated Diet: diabetic diet Hospital course: Mr. Perez is a 55 year old male with past medical history of medical noncompliance, hypertension, diabetes, tobacco abuse who was admitted for HHS/ DKA and hypertensive urgency. Patient was started on insulin drip as per DKA protocol with resolution of DKA. He was also noted to have tachycardia and acute respiratory distress for which CTA chest was done to rule out PE. CTA chest reported bilateral PE and saddle embolus. He was started on anticoagulation and pulmonary, heme oncology was consulted. Patient was also noted to have elevated troponins for which cardiology was consulted. Due to the severity of the PE, no LHC was recommended at this time. His 2D echo was also consistent with severe right heart strain from the PE. Patient was also noted to have lytic lesions on his CTA chest concerning for malignancy for which work up was initiated and oncology will be following the patient after discharge. Patient's BP and blood glucose were adequately controlled. DIabetic education was provided. He also reported of toothache for which he was started on oral abx with improvement of his symptoms. At this time patient is hemodynamically stable and will be discharged to home with f/u with Cardio, PCP , Pulmonary, and Heme/Onc. He will be discharged with oral anticoagulation, antihypertensive medications, and insulin therapy. Patient demonstrates understanding of his diagnosis and agrees with his discharge care and plan. - Time Spent with Patient Total time spent providing and/or coordinating discharge services: Greater than 30 minutes - Constitutional Vitals: Temp Pulse Resp BP Pulse Ox 97.8 F 60 17 108/80 98 06/13/16 06:35 06/13/16 06:35 06/13/16 06:35 06/13/16 09:16 06/13/16 06:35 General appearance: Present: cooperative, A&O X 3, pleasant, no acute distress, answers questions appropriately - Head Head exam: Present: atraumatic, normocephalic - Eye Eye exam: Present: PERRL, conjuntiva pink, sclera anicteric - Respiratory Respiratory exam: Present: CTAB. Absent: accessory muscle use, rales, rhonchi, wheezes - Cardiovascular Cardiovascular exam: Present: RRR, +S1, +S2. Absent: diastolic murmur, gallop, rubs, systolic murmur - GI/Abdominal GI/Abdominal exam: Present: normal bowel sounds, soft, no peritoneal signs. Absent: distended, tenderness - Extremities Exam Extremities exam: Present: warm, radial pulses palpable and symetrical. Absent : calf tenderness, cyanotic, pedal edema - Neurological Exam Neurological exam: Present: alert, oriented X3, no focal deficits - Psychiatric Psychiatric exam: Present: normal affect, normal mood
[2016-06-15 13:48] LABS: Kappa Qnt Free Light Chains 1.42 mg/dL (0.33-1.94); Lambda Qnt Free Light Chains 1.26 mg/dL (0.57-2.63)
[2016-06-16 03:53] LABS: Alpha 2 Globulin (PEP) 0.93 g/dL (0.48-1.05); Beta Globulin (PEP) 0.76 g/dL (0.48-1.10)
[2016-06-16 07:19] LABS: IFE Reflexed IFE Done; Immunoglobulin A 187 mg/dL (68-408)
[2016-06-16 07:20] LABS: Immunoglobulin G 580 mg/dL (768-1632); Immunoglobulin M 164 mg/dL (35-263)
== END 2016-06-13 11:55 | disposition home or self-care (01) | DRG 280 ==
LOC: EMEROO 14:23 → 2NNU 14:23
PROVIDERS: ADMIT Internal Medicine; ATTEND Internal Medicine